=== PATIENT | female | born 1985 | race Caucasian/White ===

== ENCOUNTER → 2016-08-06 | Outpatient (CLI) | payer OTHER ==
[~2016-08-06] MED LIST: NORT25CA2 PO; RIZA10TA2 PO; VERA240C PO; ZONI100C2 PO
[2016-08-06 13:25] LABS: BASO # 0.2 K/mm3 (0.0-0.2); BASO % 1.4 % (0.0-1.0); EOS # 0.1 K/mm3 (0.0-0.50); EOS % 0.5 % (0.0-3.0); LARGE UNSTAINED CELL # 0.1 K/mm3 (0.0-0.4); LARGE UNSTAINED CELL % 0.8 % (0.0-4.0); LYMPH # 1.5 K/mm3 (1.5-4.5); MEAN CORPUSCULAR HEMOGLOBIN 30.8 pg (27.0-33.0); MEAN CORPUSCULAR HGB CONC 33.2 g/dl (32.0-36.5); MEAN CORPUSCULAR VOLUME 92.7 fl (80.0-96.0); MONO # 0.5 K/mm3 (0.0-0.8); MONO % 4.4 % (0.0-5.0); NEUTROPHILS # 9.2 K/mm3 (1.8-7.7); NEUTROPHILS % 80.9 % (36.0-66.0); PLATELET COUNT, AUTOMATED 245 k/mm3 (150-450); RED CELL DISTRIBUTION WIDTH 12.9 % (11.5-14.5); WHITE BLOOD COUNT 11.4 K/mm3 (4.0-10.0)
== END ==
LOC: M SMT 10:32
PROVIDERS: ATTEND Advanced Practice Midwife
DX: Z34.83 Encounter for supervision of other normal pregnancy, third trimester (principal)

== ENCOUNTER 2016-09-10 10:57 | Emergency (ER) | payer OTHER, MEDICAID ==
[~2016-09-10] VITALS: Ht 162.6 cm; Wt 72.6 kg
[2016-09-10 12:05] LABS: BASO % 0.4 % (0.0-1.0); EOS % 0.5 % (0.0-3.0); LARGE UNSTAINED CELL # 0.2 K/mm3 (0.0-0.4); LARGE UNSTAINED CELL % 1.8 % (0.0-4.0); LYMPH # 1.2 K/mm3 (1.5-4.5); LYMPH % 11.8 % (24.0-44.0); MEAN CORPUSCULAR HEMOGLOBIN 31.2 pg (27.0-33.0); MEAN CORPUSCULAR HGB CONC 33.5 g/dl (32.0-36.5); MEAN CORPUSCULAR VOLUME 93.4 fl (80.0-96.0); MONO # 0.4 K/mm3 (0.0-0.8); MONO % 3.7 % (0.0-5.0); NEUTROPHILS # 8.3 K/mm3 (1.8-7.7); NEUTROPHILS % 81.9 % (36.0-66.0); PLATELET COUNT, AUTOMATED 225 k/mm3 (150-450); RED CELL DISTRIBUTION WIDTH 12.3 % (11.5-14.5); WHITE BLOOD COUNT 10.1 K/mm3 (4.0-10.0)
[2016-09-10 12:23] LABS: ANION GAP 7 MEQ/L (8-16); BLOOD UREA NITROGEN 9 MG/DL (7-18); CALCIUM LEVEL 8.6 MG/DL (8.5-10.1); CARBON DIOXIDE LEVEL 27 MEQ/L (21-32); CHLORIDE LEVEL 104 MEQ/L (98-107); CREATININE FOR GFR 0.54 MG/DL (0.55-1.02); GLOMERULAR FILTRATION RATE > 60.0 (>60); GLUCOSE, FASTING 84 MG/DL (70-105); POTASSIUM SERUM 4.2 MEQ/L (3.5-5.1); SODIUM LEVEL 138 MEQ/L (136-145)
[2016-09-10 13:24] LABS: ALBUMIN 2.8 GM/DL (3.2-5.2); ALBUMIN/GLOBULIN RATIO 0.76 (1.00-1.93); ALKALINE PHOSPHATASE 129 U/L (45-117); ALT/SGPT 21 U/L (12-78); AST/SGOT 26 U/L (15-37); BILIRUBIN,DIRECT < 0.1 MG/DL (0.0-0.2); BILIRUBIN,TOTAL 0.2 MG/DL (0.2-1.0); TOTAL PROTEIN 6.5 GM/DL (6.4-8.2)
[2016-09-10 14:53] VITALS: BP 135/63
[2016-09-10] MEDS ORDERED: Holter Monitor (15:26)
--- NOTE | 2016-09-12 12:09 | ECGEPIP ---
Stationary ECG Study 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
== END 2016-09-10 14:56 | disposition home or self-care (01) ==
LOC: EDUNIT# 10:57 → EDBD 10:57 → M ED 12:23
DX: O26.893 Other specified pregnancy related conditions, third trimester (principal); R55 Syncope and collapse

== ENCOUNTER → 2016-09-15 | Outpatient (CLI) | payer OTHER ==
[~2016-09-15] MED LIST changes: +Holter Monitor
[2016-09-15 18:34] LABS: FREE T4 0.91 NG/DL (0.76-1.46)
== END ==
LOC: M SMT 13:47
PROVIDERS: ATTEND Specialist
DX: R55 Syncope and collapse (principal)

== ENCOUNTER → 2016-10-13 | Outpatient (REF) | payer MEDICAID, OTHER ==
[~2016-10-13] MED LIST changes: +COLA100C3 PO; +IBUP600T26 PO; +IBUPOTC PO; +MIRA3350 PO; +OXYC1TAB23 PO; +PRENTAB55 PO; +TYLE500T78 PO
== END ==
LOC: M LAB REF 17:29
PROVIDERS: ATTEND Advanced Practice Midwife
DX: Z34.83 Encounter for supervision of other normal pregnancy, third trimester (principal)

== ENCOUNTER 2016-10-27 06:02 | Inpatient (IN) | payer MEDICAID, OTHER ==
[~2016-10-27] VITALS: Ht 160 cm; Wt 75.0 kg
[2016-10-27] VITALS (7 sets, daily range): BP systolic 95–122; BP diastolic 50–73
[~2016-10-27 06:02] MED LIST changes: -COLA100C3 PO; -IBUP600T26 PO; -IBUPOTC PO; -MIRA3350 PO; -OXYC1TAB23 PO; -TYLE500T78 PO
[2016-10-27] MEDS ORDERED: LR 800 ML IV ONE (06:30)
[2016-10-27] MEDS ORDERED: BICITRA 30ML SOLN UDC PO ONE (06:45)
[2016-10-27] MEDS ORDERED: ceFAZolin SOD 1 GM in D5W MINI-BAG PLUS 50 ML IV ONE (06:45)
[2016-10-27] MEDS ORDERED: LR 1,000 ML IV SCH ×2 (06:45→09:52)
[2016-10-27 07:47] LABS: MEAN CORPUSCULAR HEMOGLOBIN 30.7 pg (27.0-33.0); MEAN CORPUSCULAR VOLUME 93.2 fl (80.0-96.0); RED CELL DISTRIBUTION WIDTH 12.9 % (11.5-14.5); WHITE BLOOD COUNT 8.5 K/mm3 (4.0-10.0)
[2016-10-27] MEDS ORDERED: OXYC1TAB23 PO (08:31)
[2016-10-27] MEDS ORDERED: OXYTOCIN INJ 10 UNITS/ML VIAL (J2590) As Ordered ONE (09:02)
[2016-10-27] MEDS ORDERED: ePHEDrine SULFATE 25 MG/5 ML(5MG/ML) SYRINGE As Ordered ONE (09:02)
[2016-10-27] MEDS ORDERED: KETOROLAC 60 MG/2 ML VIAL (J1885) As Ordered ONE (09:02)
[2016-10-27] MEDS ORDERED: PHENYLephrine HCL 500 MCG/5 ML (100MCG/ML) SYRINGE (J2370) As Ordered ONE (09:02)
[2016-10-27] MEDS ORDERED: MORPHINE PRES-FREE INJ 10 MG/10 ML VIAL (J2274) As Ordered ONE (09:02)
[2016-10-27] MEDS ORDERED: ONDANSETRON 4MG/2ML VIAL (J2405) As Ordered ONE ×2 (09:02→09:28)
[2016-10-27] MEDS ORDERED: NALBUPHINE HCL 10 MG/ML AMP (J2300) IV PRN (09:15)
[2016-10-27] MEDS ORDERED: ONDANSETRON 4MG/2ML VIAL (J2405) IV PRN ×3 (09:15→10:30)
[2016-10-27] MEDS ORDERED: NALOXONE INJ 0.4 MG/1 ML VIAL (J2310) IV PRN ×2 (09:15)
[2016-10-27] MEDS ORDERED: METOCLOPRAMIDE INJ 10MG/2ML VIAL (J2765) IV PRN (09:15)
[2016-10-27] MEDS ORDERED: dexameTHASONE 4 MG/ML 1ML VIAL (J1100) As Ordered ONE (09:28)
[2016-10-27] MEDS ORDERED: DOCUSATE SODIUM 100 MG CAP PO PRN (10:00)
[2016-10-27] MEDS ORDERED: RHOGAM 300 MCG (1500 IU) INJ (J2790) IM SCH (10:00)
[2016-10-27] MEDS ORDERED: MEASLES,MUMPS,RUBELLA VACCINE INJ (MMR-II) (90707) SC SCH (10:00)
[2016-10-27] MEDS ORDERED: PERCOCET 5MG/325MG TAB PO PRN (10:00)
[2016-10-27] MEDS ORDERED: fentaNYL 100 MCG/2 ML INJECTION (J3010) IV PRN (10:30)
[2016-10-27] MEDS ORDERED: OXYTOCIN DRIP 30 UNITS in APPROPRIATE DILUENT 1 EA IV ONE (10:30)
--- NOTE | 2016-10-27 11:44 | RO ---
DATE OF PROCEDURE: 10/27/2016 PREOPERATIVE DIAGNOSIS: 38-1/7 weeks gestation, prior myomectomy surgery. POSTOPERATIVE DIAGNOSIS: 38-1/7 weeks gestation, prior myomectomy surgery. PROCEDURE: Primary low transverse section. SURGEON: Héctor Mendes MD DIE TROUBLE SHOOTER: Rehana Sotomayor CNM ANESTHESIA: Spinal. ESTIMATED BLOOD LOSS: 600 mL. URINE OUTPUT: 100 mL. INTRAVENOUS (IV)FLUIDS: 1500 mL lactated Ringer (LR). FINDINGS: 2814 gram or 6 pound 3 ounce female infant, vertex position, nuchal cord times two. There were adhesions to the posterior uterus. There were sigmoid adhesions to the left lateral uterus, omental adhesions to the anterior abdominal wall. There was a thin area approximately 5-6 cm in diameter of the posterior thin line fundus from prior myomectomy surgery. DESCRIPTION OF PROCEDURE: Patient taken to the operating room where spinal anesthesia was induced. She was prepped and draped in sterile fashion in the supine position. A Austin catheter was in place. A Pfannenstiel skin incision was made with a scalpel, carried through to the underlying fascia. The fascia was nicked and extended. The fascia was dissected off the rectus muscles. The peritoneal cavity was entered. A bladder flap was created. A curvilinear incision was made in the lower uterine segment until clear fluid was noted. This was extended manually. was delivered in the vertex position without difficulty. Nuchal cord times two was reduced manually. cried spontaneously. Cord was doubly clamped and cut. The was handed to awaiting nurses. Placenta was expressed. The uterus was exteriorized and cleared of clots and debris. Uterine incision was closed with #0 Vicryl in a running locked fashion. A second imbricating layer of #0 Vicryl was placed and sigmoid colon adhesions to the left lateral uterus were taken down sharply, omental adhesions at the anterior abdominal wall were taken down sharply. The uterus was placed back in the abdominal cavity. The peritoneum was closed with #2-0 Vicryl in a running fashion. The fascia was closed with #0 Vicryl in a running fashion. The deep layer was irrigated. The deep layer was closed with #3-0 chromic. The skin was closed with #4-0 Monocryl subcuticular sutures. Sponge, instrument and needle counts were correct.
[2016-10-27] MEDS: PRENATAL VITAMIN TAB PO SCH (12:55)
[2016-10-27] MEDS: KETOROLAC 30 MG/ML VIAL (J1885) IV SCH ×2 (15:41→21:42)
[2016-10-28 02:17] VITALS: BP 91/54
[2016-10-28] MEDS ORDERED: diphenhydrAMINE 25 MG CAP PO PRN (03:00)
[2016-10-28] MEDS: KETOROLAC 30 MG/ML VIAL (J1885) IV SCH ×2 (04:05→09:32)
[2016-10-28 05:47] VITALS: BP 95/51
[2016-10-28 06:59] LABS: MEAN CORPUSCULAR HEMOGLOBIN 30.8 pg (27.0-33.0); MEAN CORPUSCULAR HGB CONC 32.4 g/dl (32.0-36.5); MEAN CORPUSCULAR VOLUME 95.2 fl (80.0-96.0); RED CELL DISTRIBUTION WIDTH 12.9 % (11.5-14.5); WHITE BLOOD COUNT 12.8 K/mm3 (4.0-10.0)
[2016-10-28] MEDS: PRENATAL VITAMIN TAB PO SCH (08:01)
[2016-10-28 10:07] VITALS: BP 112/54
[2016-10-28] MEDS: PERCOCET 5MG/325MG TAB PO PRN ×2 (11:25→20:34)
[2016-10-28 14:03] VITALS: BP 116/53
[2016-10-28] MEDS: IBUPROFEN 800 MG TAB PO SCH (17:15)
[2016-10-28 18:06] VITALS: BP 120/57
[2016-10-28 22:12] VITALS: BP 113/67
[2016-10-29] MEDS: PERCOCET 5MG/325MG TAB PO PRN ×2 (00:53→10:37)
[2016-10-29] MEDS: IBUPROFEN 800 MG TAB PO SCH ×2 (02:10→09:36)
[2016-10-29 05:44] VITALS: BP 104/53
[2016-10-29] MEDS: PRENATAL VITAMIN TAB PO SCH (09:35)
[2016-10-29] MEDS ORDERED: IBUP600T26 PO (10:09)
[2016-10-29] MEDS ORDERED: COLA100C3 PO (10:10)
== END 2016-10-29 11:15 | disposition home or self-care (01) | DRG 540 ==
LOC: M LDI 06:02 → M OBS 12:20
PROVIDERS: ADMIT Specialist; ATTEND Specialist
PROC: 10D00Z1 Extraction of Products of Conception, Low, Open Approach (ICD-10-PCS; principal; 2016-10-27 08:30)
DX: O34.29 Maternal care due to uterine scar from other previous surgery (principal); N99.4 Postprocedural pelvic peritoneal adhesions; O69.81X0 Labor and delivery complicated by cord around neck, without compression, not applicable or unspecified; Z3A.38 38 weeks gestation of pregnancy; Z37.0 Single live birth

== ENCOUNTER 2016-11-26 21:41 | Inpatient (IN) | payer OTHER ==
[~2016-11-26] VITALS: Ht 162.6 cm; Wt 70.3 kg
[~2016-11-26 21:41] MED LIST changes: -IBUPOTC PO; -MIRA3350 PO; -TYLE500T78 PO
[2016-11-26] MEDS ORDERED: MIRA3350 PO (21:58)
[2016-11-26] MEDS ORDERED: NS 1,000 ML IV ONE (23:00)
[2016-11-26] MEDS ORDERED: HYDROmorphone HCL 1 MG/ML SYRINGE (J1170) IV ONE (23:00)
[2016-11-26] MEDS ORDERED: diphenhydrAMINE INJ 50MG/ML VIAL (J1200) As Ordered ONE (23:29)
[2016-11-26 23:38] LABS: BASO % 0.6 % (0.0-1.0); EOS # 0.2 K/mm3 (0.0-0.50); LARGE UNSTAINED CELL # 0.1 K/mm3 (0.0-0.4); LYMPH # 2.3 K/mm3 (1.5-4.5); LYMPH % 37.4 % (24.0-44.0); MEAN CORPUSCULAR HEMOGLOBIN 30.1 pg (27.0-33.0); MEAN CORPUSCULAR HGB CONC 32.2 g/dl (32.0-36.5); MEAN CORPUSCULAR VOLUME 93.4 fl (80.0-96.0); MONO # 0.4 K/mm3 (0.0-0.8); MONO % 6.4 % (0.0-5.0); NEUTROPHILS # 2.9 K/mm3 (1.8-7.7); NEUTROPHILS % 50.6 % (36.0-66.0); PLATELET COUNT, AUTOMATED 260 k/mm3 (150-450); RED CELL DISTRIBUTION WIDTH 11.6 % (11.5-14.5); WHITE BLOOD COUNT 5.8 K/mm3 (4.0-10.0)
[2016-11-26 23:56] LABS: ALBUMIN 3.3 GM/DL (3.2-5.2); ALKALINE PHOSPHATASE 101 U/L (45-117); ALT/SGPT 19 U/L (12-78); AMYLASE 58 U/L (25-115); ANION GAP 7 MEQ/L (8-16); AST/SGOT 12 U/L (15-37); BILIRUBIN,DIRECT < 0.1 MG/DL (0.0-0.2); BILIRUBIN,TOTAL 0.2 MG/DL (0.2-1.0); BLOOD UREA NITROGEN 17 MG/DL (7-18); CALCIUM LEVEL 8.8 MG/DL (8.5-10.1); CARBON DIOXIDE LEVEL 27 MEQ/L (21-32); CHLORIDE LEVEL 110 MEQ/L (98-107); CREATININE FOR GFR 0.81 MG/DL (0.55-1.02); GLOMERULAR FILTRATION RATE > 60.0 (>60); GLUCOSE, FASTING 94 MG/DL (70-105); POTASSIUM SERUM 3.8 MEQ/L (3.5-5.1); SODIUM LEVEL 144 MEQ/L (136-145); TOTAL PROTEIN 6.6 GM/DL (6.4-8.2)
[2016-11-27] MEDS ORDERED: ISOVUE-370 76% 100ML VIAL (Q9967) As Ordered ONE (00:24)
[2016-11-27] MEDS ORDERED: diphenhydrAMINE INJ 50MG/ML VIAL (J1200) IV STA (00:39)
[2016-11-27] MEDS ORDERED: MORPHINE 4 MG/ML 1ML SYRINGE IV ONE (00:45)
--- NOTE | 2016-11-27 00:50 | REPUSA ---
CT of the abdomen and pelvis with contrast Clinical statement: Pain. Technique: Multiple axial CT images were obtained from the base of the lungs through the floor of the pelvis utilizing 5 mm axial slices after administration of nonionic intravenous contrast. Coronal an d sagittal reconstructions were also obtained. Comparison: None. Findings: Chest: The visualized lung bases are clear. Abdomen: The liver, spleen, pancreas, kidneys, gallbladder, and adrenal glands are unremarkable. The aorta is within normal limits. There is no evidence of abdominal lymphadenopathy or ascites. Pelvis: Moderate amount of stool fills the colon.The bowel is otherwise unremarkable, with no obstruc tive or inflammatory changes. The urinary bladder is within normal limits. The other pelvic structure s appear grossly intact. There is no evidence of pelvic lymphadenopathy. There is a small amount of f ree fluid in the cul-de-sac. Bones: There are no suspicious osseous abnormalities seen. Impression: 1. Mild constipation. No obstructive or inflammatory bowel changes. 2. Small amount of free fluid in the cul-de-sac.
[2016-11-27] MEDS ORDERED: MORPHINE 10 MG/ML 1ML VIAL IV ONE (01:15)
[2016-11-27] MEDS ORDERED: OXYC1TAB23 PO (01:57)
[2016-11-27] MEDS ORDERED: IBUPOTC PO (01:57)
--- NOTE | 2016-11-27 02:37 | HPE ---
DATE OF ADMISSION: 11/27/2016 31-year-old, (G) 3, para (P) 2-0-1-2 female status post primary section on 10/27/2016, presents with 3 days of sharp constant right lower quadrant pain. The pain started several hours after walking vigorously up two flights of stairs. The pain is getting progressively worse. She rates the pain as a 10/10 in severity. She presented to the emergency room today as the pain could not be controlled with oral narcotics. She denies nausea, vomiting, or diarrhea. She has occasional bouts of constipation. She denies fevers or chills. MEDICAL HISTORY: Noncontributory. SURGICAL HISTORY: 1. (C) section times one on 10/27/2016. 2. myomectomy via pfanennsteil incision. SOCIAL HISTORY: The patient is . She denies cigarettes, alcohol or drug use. ALLERGIES: CECLOR. FAMILY HISTORY: Noncontributory. PHYSICAL EXAMINATION: VITAL SIGNS: Blood pressure 118/67, pulse 88, temperature 98.1, respiratory rate 18. She appears uncomfortable with the tenderness in the right lower quadrant starting at the right margin of the incision extending upward in an arc towards the anterior superior iliac spine. There is a firm cord palpable there. There is no fluctuance. There is no erythema. The remainder of the abdominal exam is totally benign. Uterus in nontender. EXTREMITIES: Nontender. LABORATORIES: White blood count 5.8, hemoglobin 11.7. Basic chemistry profile normal. CT scan essentially normal postoperative CT scan of the abdomen and pelvis. ASSESSMENT: 31-year-old (G) 3 para(P) 2-0-1-2 female one month status post section presents with worsening right lower quadrant pain. The etiology of the pain is unclear. The patient will be admitted for pain control. Consider opening the right side of the incision to see if there is an abscess or fluid collection, although it seems unlikely based on clinical presentation. Will continue to observe pain for any remission. Possible nerve entrapment pain as part of differential diagnosis. Patient will be on stool softeners to maintain bowel movements. [facility]
[2016-11-27] MEDS ORDERED: LR 1,000 ML IV SCH (02:45)
[2016-11-27] MEDS ORDERED: PERCOCET 5MG/325MG TAB PO PRN (02:45)
[2016-11-27] MEDS ORDERED: IBUPROFEN 800 MG TAB PO PRN (03:00)
[2016-11-27] MEDS ORDERED: ONDANSETRON 4MG/2ML VIAL (J2405) IV PRN ×2 (03:00→23:30)
[2016-11-27] MEDS: PERCOCET 5MG/325MG TAB PO PRN ×5 (03:05→20:21)
[2016-11-27 04:00] VITALS: BP 112/67
[2016-11-27 07:07] LABS: MEAN CORPUSCULAR HGB CONC 32.1 g/dl (32.0-36.5); MEAN CORPUSCULAR VOLUME 96.4 fl (80.0-96.0); RED CELL DISTRIBUTION WIDTH 11.6 % (11.5-14.5); WHITE BLOOD COUNT 4.5 K/mm3 (4.0-10.0)
[2016-11-27 07:20] LABS: ANION GAP 4 MEQ/L (8-16); BLOOD UREA NITROGEN 14 MG/DL (7-18); CALCIUM LEVEL 7.7 MG/DL (8.5-10.1); CARBON DIOXIDE LEVEL 28 MEQ/L (21-32); CHLORIDE LEVEL 114 MEQ/L (98-107); CREATININE FOR GFR 0.83 MG/DL (0.55-1.02); GLOMERULAR FILTRATION RATE > 60.0 (>60); GLUCOSE, FASTING 81 MG/DL (70-105); POTASSIUM SERUM 4.1 MEQ/L (3.5-5.1); SODIUM LEVEL 146 MEQ/L (136-145)
[2016-11-27 08:00] VITALS: BP 96/55
[2016-11-27] MEDS ORDERED: LIDOCAINE 1% SDV 5 ML VIAL SC ONE (08:15)
[2016-11-27] MEDS: MIRALAX *UNIT DOSE* 17GM PACKET PO SCH (09:29)
[2016-11-27] MEDS: DOCUSATE SODIUM 100 MG CAP PO SCH ×2 (09:29→20:21)
[2016-11-27] MEDS: MORPHINE 4 MG/ML 1ML SYRINGE IV PRN ×3 (09:37→21:19)
[2016-11-27] MEDS: IBUPROFEN 800 MG TAB PO SCH ×2 (13:11→22:05)
[2016-11-27 16:00] VITALS: BP 96/51
[2016-11-27 20:00] VITALS: BP 107/55
[2016-11-27] MEDS ORDERED: KETOROLAC 30 MG/ML VIAL (J1885) IV PRN (23:15)
[2016-11-27] MEDS: NS 1,000 ML IV SCH (23:20)
[2016-11-27] MEDS ORDERED: MORPHINE 1MG/ML IN 0.9% NACL 100ML IV BAG IV PRN (23:30)
[2016-11-27] MEDS ORDERED: NALOXONE INJ 0.4 MG/1 ML VIAL (J2310) IV PRN (23:30)
[2016-11-27] MEDS ORDERED: NALBUPHINE HCL 10 MG/ML AMP (J2300) IV PRN (23:30)
[2016-11-27] MEDS ORDERED: EPIDURAL/PCA KEYS XX PRN (23:30)
[2016-11-28] VITALS (10 sets, daily range): BP systolic 92–121; BP diastolic 46–73
[2016-11-28] MEDS: KETOROLAC 30 MG/ML VIAL (J1885) IV PRN ×3 (05:42→19:00)
[2016-11-28 06:44] LABS: MEAN CORPUSCULAR HEMOGLOBIN 30.8 pg (27.0-33.0); MEAN CORPUSCULAR HGB CONC 32.6 g/dl (32.0-36.5); MEAN CORPUSCULAR VOLUME 94.5 fl (80.0-96.0); RED CELL DISTRIBUTION WIDTH 11.7 % (11.5-14.5); WHITE BLOOD COUNT 6.6 K/mm3 (4.0-10.0)
[2016-11-28] MEDS: MIRALAX *UNIT DOSE* 17GM PACKET PO SCH (08:37)
[2016-11-28] MEDS: DOCUSATE SODIUM 100 MG CAP PO SCH ×2 (08:37→21:17)
[2016-11-28] MEDS: diphenhydrAMINE INJ 50MG/ML VIAL (J1200) IV PRN ×2 (09:09→16:58)
[2016-11-28] MEDS: GABAPENTIN 300 MG CAP PO SCH ×2 (18:49→21:17)
[2016-11-28] MEDS: PERCOCET 5MG/325MG TAB PO PRN (22:33)
[2016-11-28] MEDS: NS 1,000 ML IV SCH (23:19)
[2016-11-29] VITALS: BP 107/55
[2016-11-29] MEDS: KETOROLAC 30 MG/ML VIAL (J1885) IV PRN ×4 (01:01→19:12)
[2016-11-29] MEDS: PERCOCET 5MG/325MG TAB PO PRN ×5 (03:34→21:40)
[2016-11-29 04:00] VITALS: BP 117/60
[2016-11-29 08:00] VITALS: BP 108/53
[2016-11-29] MEDS: DOCUSATE SODIUM 100 MG CAP PO SCH ×2 (08:50→21:00)
[2016-11-29] MEDS: GABAPENTIN 300 MG CAP PO SCH ×3 (08:50→21:00)
[2016-11-29] MEDS: MIRALAX *UNIT DOSE* 17GM PACKET PO SCH (08:50)
[2016-11-29] MEDS ORDERED: BUPIVACAINE HCL 0.25% 30 ML VIAL SC ONE (10:00)
[2016-11-29] MEDS: PRENATAL VITAMIN TAB PO SCH (15:45)
[2016-11-29 16:00] VITALS: BP 145/90
[2016-11-29 20:00] VITALS: BP 112/68
[2016-11-29] MEDS: NS 1,000 ML IV SCH (23:19)
[2016-11-30] VITALS: BP 109/57
[2016-11-30] MEDS: KETOROLAC 30 MG/ML VIAL (J1885) IV PRN ×2 (01:36→08:21)
[2016-11-30] MEDS: PERCOCET 5MG/325MG TAB PO PRN (06:04)
[2016-11-30 08:00] VITALS: BP 107/63
[2016-11-30] MEDS: MIRALAX *UNIT DOSE* 17GM PACKET PO SCH (08:20)
[2016-11-30] MEDS: PRENATAL VITAMIN TAB PO SCH (08:21)
[2016-11-30] MEDS: GABAPENTIN 300 MG CAP PO SCH ×3 (08:21→21:59)
[2016-11-30] MEDS: DOCUSATE SODIUM 100 MG CAP PO SCH ×2 (08:21→21:59)
[2016-11-30] MEDS ORDERED: LIDOCAINE 5% (LIDODERM) PATCH TD ONE (10:00)
[2016-11-30] MEDS ORDERED: IBUPROFEN 800 MG TAB PO SCH (14:00)
[2016-11-30 16:00] VITALS: BP 132/63
--- NOTE | 2016-11-30 17:01 | CR.PDOC ---
[facility] Pain Clinic Consultation General Date of Consultation: 11/30/16 Consultation Report For: MYESHA SCHAFFER MD Chief Complaint The patient is a 31-year-old female admitted with a reason for visit of Pelvic Pain. History of Present Illness Paulette Calderon is a 31-year-old female who we are asked to see for assistance in management of right groin area pain, status post section. Paulette reports that her recent with of her daughter on 10/27/2016 by section was without complications. She states that she was able to be discharged from the hospital within 2 days of her confinement and that she had no problems with healing of her incision. She reports that she went for a job interview around November 09 and at that time climbed a flight of stairs. She initially had a twinge of discomfort, which got progressively worse in the right groin. She did follow up with her entry level automotive technician, Dr. Myesha Schaffer, but unfortunately continued to have significant pain in the right groin. Notes that the pain starts just at the edge of her surgical incision right side and radiates up towards the right hip but also has significant pain with any twisting or reaching with the right side of her body. Notes that stepping down is exquisitely painful. Denies any numbness or tingling into the legs. Denies any saddle numbness. Denies any difficulty with bladder but he is noted that she is constipated. Bowels have not moved in 1 week. Rates pain level today as a 5-7/10 while lying in bed and a 9-10 over 10 if attempting to stand and walk. Dr. Schaffer did do an aspiration of the suture line right side with no fluid apparently obtained. There has been no drainage and no redness from the incision. She has had some imaging studies which will be outlined below. Medications which have been trialed have been morphine, oxycodone, Toradol and gabapentin. She is due to be started on some ibuprofen. He notes that only the combination of Toradol and morphine provided her with much relief in the Toradol was the best part of it Home Medications Scheduled Multivitamins/ ( 19) 1 Tab Tab, 1 TAB PO DAILY, (Reported) Scheduled PRN Ibuprofen (Ibuprofen) 200 Mg Tab, 400 MG PO Q6H PRN for PAIN, (Reported) Oxycodone/Acetaminophen (Oxycodone/Acetaminophen 5-325 mg) 1 Tab Tab, 1 TAB PO Q6H PRN for PAIN, (Reported) Polyethylene Glycol (Miralax) 1 Pow Pow, 17 GM PO DAILY PRN for CONSTIPATION, ( Reported) dilute in 8 ounces of water or juice Allergies Coded Allergies: Hydromorphone (Unverified Adverse Reaction, Unknown, 11/27/16) Past Medical History Medical History General good health Surgical History Laparoscopic myotome Karen to [place] 2014 Family History Family History Noncontributory Social History Social History Denies tobacco, alcohol, or illicit substance abuse. Lives with her and her children. 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 Review of Systems Subjective HEENT: Denies: head aches, vision problems, hearing problems Skin: Reports: other (abdominal surgical incision healing without difficulty), Denies: lesions, rash, breakdown Pulmonary: Reports: other (had difficulty with shortness of breath during , which caused her to need to lie down), Denies: cough, dyspnea Cardiovascular: Denies: chest pain, edema, palpitations Gastrointestinal: Reports: constipation (is currently taking Colace and MiraLAX. No bowel movement in one week), other (did have some nausea during ) Genitourinary: Denies: dysuria, hematuria, loss of bladder control Hematologic: Denies: easy bleeding, easy bruising, blood dyscrasias Endocrine: Denies: Diabetes mellitus Neurological: Reports: other (episodes of dizziness during . This has resolved. Denies seizures, headaches, tremors) Psych: Reports: mood normal, Denies: thoughts of self harm, thoughts of harming other Physical Examination Physical Examination Vital Signs/I&O Vital Signs Date Time Temp Pulse Resp B/P (MAP) Pulse Ox O2 Delivery O2 Flow Rate FiO2 11/30/16 08:00 97.8 83 18 107/63 (78) 96 Room Air I&O- Last 24 Hours up to 6 AM 11/30/16 05:59 Intake Total 1200 ml Output Total 1650 ml Balance -450 ml Visual Analog Score (VAS): 5 (while at rest, 9-10 over 10 with attempting to walk) ENT EXAM: Positive: normocephalic Neck Exam: Positive: Full range of motion Chest Exam: Positive: Clear to auscultation, Decreased resp. excursion ( particularly noting pain, right side. Abdomen) Heart Exam: Positive: Regular rate and rhythm, Normal S1, S2, Negative: Murmurs, Rubs Abdominal Exam: Positive: Other (bowel sounds active. Abdomen is soft, slightly distended. Well-healed surgical incision noted over the symphysis pubis. No erythema no drainage along the incision. Trigger point versus scar neuroma palpated and a half to 2 cm proximal and lateral to the abdominal incision right side, exquisitely tender to touch. Mild tenderness over the right ilioinguinal level region. No tenderness over the medial, anterior or lateral thigh) Skin Exam: Positive: Warm, Dry, Negative: Rashes, Lesions Neuro Exam: Positive: Muscle Strength U/L Ext., Normal Tone, Reflexes 2+ Psych Exam: Positive: Mental status NL, Mood NL Laboratory Data Microbiology Microbiology 11/26/16 Urine Culture - Final, Complete Diagnostic and Imaging Studies Ultrasound of the pelvis completed on 11/26/2016. Notes diffusely heterogeneous uterus. The endometrium is isoechotic at with the myometrium and margins of the endometrium cannot be defined. However, no definite endometrial mass or fluid is identified. There are follicles in the right ovary. There is no dominant ovarian mass or cyst. There is vascular flow and both ovaries. There is no free fluid in the pelvis. Because of the difficulty in defining the margins of the endometrium him as per radiologist, Dr. Leonard Joseph, MRI may be considered depending on clinical findings. CT of the abdomen and pelvis with IV dye was completed on 11/27/2016. This did demonstrate mild constipation. No obstructive or inflammatory bowel changes, small amount of free fluid is noted in the cul-de-sac. Assessment 1. Right inguinal/right lower quadrant abdominal pain. 2. Trigger points versus scar neuroma, right lower quadrant. Recommendation and Plan I did review the case him with Dr. Reyes and we will look to bring Paulette to the pain clinic tomorrow for option of trigger points versus scar neuroma injection. Risks and benefits of this procedure were reviewed with Delmy and her and they will be reviewed again tomorrow at the Center. Delmy reports that she has not yet received much benefit from any of the medications she has been on. Did encourage her to continue with the gabapentin as ordered. He also has Lidoderm patch in place and I not certain if this is being discontinued, but it certainly may be helpful for her. She is also been applying ice pack to the right lower abdomen, which she finds helpful on for the cold as well as for the pressure that it places at the area. I have encouraged her to be out of bed and work on getting her bowels to evacuate. Thank you Dr. Schaffer. for allowing us to participate in the care of your patient, Delmy Calderon. We will look to be speaking with you following Delmy's visit with to the pain Center tomorrow. Should you have any questions we will be glad to discuss this with you at any time please contact us here at the pain center at [phone]. Azul Romo November 30, 2016 17:01
[2016-11-30] MEDS: ACETAMINOPHEN 500 MG TAB PO PRN (20:17)
[2016-11-30] MEDS: **NOTE PATIENT COMMENT** MISC XX SCH (21:00)
[2016-12-01] VITALS: BP 131/68
[2016-12-01] MEDS: IBUPROFEN 600 MG TAB PO SCH ×4 (00:57→18:29)
[2016-12-01] MEDS: ACETAMINOPHEN 500 MG TAB PO PRN ×2 (03:22→09:26)
[2016-12-01 08:00] VITALS: BP 125/65
[2016-12-01] MEDS: MIRALAX *UNIT DOSE* 17GM PACKET PO SCH (08:57)
[2016-12-01] MEDS: DOCUSATE SODIUM 100 MG CAP PO SCH ×2 (08:57→21:59)
[2016-12-01] MEDS: GABAPENTIN 300 MG CAP PO SCH ×3 (08:57→21:58)
[2016-12-01] MEDS: PRENATAL VITAMIN TAB PO SCH (08:57)
[2016-12-01] MEDS ORDERED: oxyCODONE 5MG TAB As Ordered ONE (16:35)
[2016-12-01] MEDS ORDERED: diazePAM 5 MG TAB As Ordered ONE (16:35)
[2016-12-01] MEDS ORDERED: TRIAMCINOLONE ACETONIDE SUSP 40 MG/ML VIAL (J3301) As Ordered ONE (16:48)
[2016-12-01] MEDS ORDERED: BUPIVACAINE HCL 0.25% 30 ML VIAL As Ordered ONE (16:48)
[2016-12-01] MEDS ORDERED: ISOVUE-M 300 61% 15ML VIAL (Q9967) As Ordered ONE (16:48)
[2016-12-01] MEDS ORDERED: LIDOCAINE 1% SDV INJ 30 ML VIAL As Ordered ONE (16:48)
[2016-12-01 18:00] VITALS: BP 116/84
[2016-12-01 20:00] VITALS: BP 120/75
[2016-12-01] MEDS: **NOTE PATIENT COMMENT** MISC XX SCH (21:00)
[2016-12-02] VITALS: BP 110/58
[2016-12-02] MEDS: IBUPROFEN 600 MG TAB PO SCH ×2 (01:02→06:15)
[2016-12-02 08:00] VITALS: BP 118/66
[2016-12-02] MEDS ORDERED: TYLE500T78 PO (08:48)
--- NOTE | 2016-12-02 15:49 | DSES ---
DATE OF ADMISSION: 11/27/2016 DATE OF DISCHARGE: 12/02/2016 HISTORY: 31-year-old 3, para 2-0-1-2 female status post primary section on 10/27/2016, presents with three days of sharp, constant right lower quadrant pain that has become increasingly severe and she rates as a 10 out of 10 in severity. She presented to the emergency room because of the pain could not be controlled on oral narcotics. Her medical history is significant for section approximately one month prior to admission. She also had a prior laparotomy with transverse incision for a myomectomy in the past. HOSPITALIZATION COURSE: The patient was admitted on 11/27/2016. She was given both narcotics, as well as nonsteroidal antiinflammatory drugs for pain. Pain control was not adequate. On 11/29/2016, the patient received local anesthesia , along with an attempt at I+D of the wound. No fluid collection was found She had no fever throughout admission. She was put on CLINICAL TRIAL SPECIALIST morphine at one point, however, it was totally ineffective pain relief. The CLINICAL TRIAL SPECIALIST was then stopped. On 11/29/2016, the patient had an attempt at a trigger point injection of the right lower quadrant incision with Marcaine. This was done by Dr. Mendes. She did get moderate relief of pain; however, the pain did recur several hours later. On 11/30/2016, she had a consultation from interventional pain physician. On 12/01/2016, she saw Dr. Reyes of the pain clinic where she had a second attempt at a trigger point injection done. This was successful and caused complete relief of her pain. We observed her for an additional evening to see if the pain would return and it did not. On 12/02/2016, she was deemed stable for discharge. ADMISSION DIAGNOSES: 1. Nerve entrapment. 2. Pain syndrome. DISCHARGE DIAGNOSES: 1. Nerve entrapment. 2. Pain syndrome. PROCEDURE: Trigger point injection to the ilioinguinal nerve. DISPOSITION: The patient will followup with Dr. Mendes in 2 weeks. She is to take ibuprofen or Tylenol as needed for discomfort. [facility]
== END 2016-12-02 09:50 | disposition home or self-care (01) | DRG 561 ==
LOC: M ED 22:16 → M ED INP 11-27 01:17 → M PED 11-27 03:24
PROVIDERS: ADMIT Specialist; ATTEND Specialist
PROC: 3E0T3BZ Introduction of Anesthetic Agent into Peripheral Nerves and Plexi, Percutaneous Approach (ICD-10-PCS; principal; 2016-12-01)
DX: O99.355 Diseases of the nervous system complicating the puerperium (principal); G89.18 Other acute postprocedural pain; G57.81 Other specified mononeuropathies of right lower limb

== ENCOUNTER → 2016-11-26 | Outpatient (CLI) | payer MEDICAID, OTHER ==
[~2016-11-26] MED LIST changes: +COLA100C3 PO; +IBUP600T26 PO; +IBUPOTC PO; +MIRA3350 PO; +OXYC1TAB23 PO; +TYLE500T78 PO
--- NOTE | 2016-11-26 17:50 | REP ---
Pelvic ultrasound, stat request: The patient complains of right lower quadrant pain as approximate 4 weeks since section the patient has had a right lower quadrant pain for approximately 3 days. The studies performed with transabdominal, endovaginal and Doppler ultrasound assessment. The uterus is anteverted and normal size measuring 8.8 x 6.1 x 6.7 meters. The myometrium is diffusely heterogeneous. No fibroids are identified. The margins of the endometrium cannot be identified and the endometrium appears to be isoechoic with the heterogeneous myometrium. No definite endometrial mass is identified. I suspect there are a few tiny endometrial calcifications. The ovaries are normal size. Right ovary measures 2.6 x 2.6 x 2.3 cm. Left ovary measures 5.0 x 3.7 x 2.6 cm. There are no dominant ovarian masses or cysts. There are small follicles in the right ovary. There is no free fluid in the pelvis. There is vascular flow in both ovaries with the Doppler resistive index of the intraparenchymal arteries on the right measuring 0.61 on the left 0.55. No evidence of ovarian torsion. There is peristalsing bowel in the area where the patient feels pain. Impression: Diffusely heterogeneous uterus. The endometrium is isoechoic with the myometrium and the margins of the endometrium cannot be defined. However, no definite endometrial mass or fluid is identified. There are follicles in the right ovary. There is no dominant ovarian mass or cyst. There is vascular flow in both ovaries. There is no free fluid in the pelvis. Because of the difficulty in defining the margins of the endometrium. A followup MRI might be considered depending on clinical findings. Signed by Leonard Carr MD 11/26/2016 05:41 P
== END ==
LOC: M RAD 16:12
PROVIDERS: ATTEND Specialist
DX: Z34.82 Encounter for supervision of other normal pregnancy, second trimester (principal)

== ENCOUNTER → 2016-12-03 | Outpatient (CLI) | payer OTHER ==
[~2016-12-03] MED LIST changes: +IBUPOTC PO; +MIRA3350 PO; +TYLE500T78 PO
--- NOTE | 2016-12-07 23:04 | ECWPNPC ---
PATIENT NAME: LYLE SWANSON : 1985 GENDER: FEMALE VISIT DATE: 12/03/2016 DISCHARGE DATE: 12/03/16 1149 VISIT LOCKED DATE TIME: PHYSICIAN: ANDRIA HOWELL RESOURCE: ANDRIA HOWELL REASON FOR APPOINTMENT 1. POST ILIOINGUINAL HISTORY OF PRESENT ILLNESS HISTORY OF PRESENT ILLNESS: PAIN THE PATIENT DESCRIBES THE PAIN... FALL RISK SCREENING: SCREENING :NO FALLS IN THE PAST YEAR TODAY'S VISIT: NOTES: P RATES PAIN TODAY 5/10. DESCRIBES PAIN INTERMITTANT, ACHING, BURNING TENDER AND SORE. PATIENT SEEN FOR HOSPITAL INPATIENT EVAL AND BROUGHT TO CLINIC WHERE A R ILIOINGUINAL NERVE BLOCK WAS DONE. THIS DID DECREASE THE PAIN IN THE RIGHT LOWER ABDOMEN. .NO PAIN IN GROIN BUT DOES HAVE SOME SHARP SHOOTING.IN THE GROIN PAIN NOW MORE ALONG RIGHT SIDE OF SCAR. IS ABLE TO WALK. IS ABLE TO PUT FOOT DOWN AND MOVE RIGHT SIDE. NO ISSUES WITH BOWELS OR BLADDER. HAS CHECKED WITH PEDIATRITION AND IS OK TO NURSE. . CURRENT MEDICATIONS TAKING 19 - TABLET ORALLY , NOTES: 12/01 9AM TAKING ACETAMINOPHEN 500 MG TABLET 2 TABLETS NEEDED ORALLY EVERY 6 HRS, NOTES: 12/01 9AM DISCONTINUED DOCUSATE SODIUM 100 MG CAPSULE 1 CAPSULE NEEDED ORALLY ONCE A DAY, NOTES: 12/01 9AM DISCONTINUED POLYETHYLENE GLYCOL - POWDER , NOTES: 12/01 9AM DISCONTINUED GABAPENTIN 300 MG CAPSULE 1 CAPSULE ORALLY THREE TIMES A DAY, NOTES: 12/01 9AM DISCONTINUED IBUPROFEN 1 TAB ORAL , NOTES: 11/30 4PM DISCONTINUED IBUPROFEN 600MG PRN PO , NOTES: 12/01 6AM DISCONTINUED ONDANSETRON 1 TAB ORAL , NOTES: 11/30 2AM DISCONTINUED DIPHENHYDRAMINE 1 TAB ORAL , NOTES: 11/28 4PM DISCONTINUED NALBUPHINE HCL 10 MG/ML SOLUTION 1 ML NEEDED INJECTION EVERY 6 HRS DISCONTINUED NALOXONE HCL 0.4 MG/ML SOLUTION INJECTION DISCONTINUED IBUPROFEN 200 MG TABLET 1 TABLET WITH FOOD OR MILK NEEDED ORALLY EVERY 6 HRS MEDICATION LIST REVIEWED AND RECONCILED WITH THE PATIENT PAST MEDICAL HISTORY NO MEDICAL HISTORY. ALLERGIES DILAUDID: ANGIOEDEMA: ALLERGY REVIEW OF SYSTEMS CONSTITUTIONAL: ANY CHANGE IN YOUR MEDICAL CONDITION? NO . CHILLS NO . FEVER NO . INFECTION: DO YOU HAVE NEW INFECTIONS? NO . DO YOU HAVE HISTORY OF MRSA? NO . MUSCULOSKELETAL: ANY NEW PATTERNS OF PAIN OR NUMBNESS? YES . GASTROENTEROLOGY: ANY NEW CHANGE IN BOWEL CONTROL? NO . GENITOURINARY: ANY NEW CHANGE IN BLADDER CONTROL? NO . IS THERE A CHANCE YOU COULD BE ? NO . HEMATOLOGY/LYMPH: DO YOU TAKE ANY BLOOD THINNERS? (FOR EXAMPLE- COUMADIN, PLAVIX, AGGRENOX, PLATEL, PRADAXA, OR XARELTO) NO . WHEN WAS YOUR LAST DOSE? DATE: TIME: . NEUROLOGY: HAVE YOU FALLEN IN THE PAST 6 MONTHS? NO . ANY NEW EXTREMITY NUMBNESS OR WEAKNESS? NO . CARDIOLOGY: DO YOU HAVE A PACEMAKER OR DEFIBRILLATOR? NO . RESPIRATORY: HAVE YOU BEEN SICK IN THE PAST WEEK? NO . FEVER NO . FLU LIKE SYMPTOMS? NO . COUGH NO . INTEGUMENTARY: DO YOU HAVE ANY RASHES OR OPEN SORES? NO . ALLERGIC/IMMUNO: ARE YOU ALLERGIC TO SHELLFISH OR IV DYE? NO . ANY NEW ALLERGIES? NO . PSYCHIATRIC: DO YOU HAVE THOUGHTS OF HURTING YOURSELF OR SOMEONE ELSE? NO . ARE YOU ABUSED, NEGLECTED, OR IN AN UNSAFE ENVIRONMENT? NO . ENDOCRINOLOGY: ARE YOU DIABETIC? NO . OTHER: DO YOU NEED ANY PRESCRIPTIONS? NO . IF YES, PLEASE LIST: ____ . ANY NEW PROBLEMS WITH YOUR MEDICATIONS? NO . WHEN DID YOU LAST EAT? ____ . WHEN DID YOU LAST DRINK? ____ . WHAT DID YOU LAST DRINK? ____ . NAME OF PERSON DRIVING YOU HOME? ____ . DO YOU HAVE ANY OTHER QUESTIONS OR CONCERNS NO . REVIEWED BY: PROVIDER: ANDRIA RYAN . VITAL SIGNS WT 150.0 LBS, HT 64", BMI 25.74 INDEX, BP 136/73 MM HG, HR 82 /MIN, RR 16 /MIN, TEMP 97.9 F, OXYGEN SAT % 98%, NA INITIALS TL 1027, REVIEWED BY: VD. EXAMINATION GENERAL EXAMINATION: GENERAL APPEARANCE:BROUGHT INTO CLINIC BY HER IN WHEELCHAIR. . PSYCHALERT , ORIENTED X 3 , APPROPRIATE MOOD AND AFFECT . SMILING AND TALKIATIVE. LUNGS:CLEAR TO AUSCULTATION BILATERALLY. HEART:HEART RATE REGULAR. ABDOMEN:SOFT, NON-TENDER, NO ORGANOMEGALY, BOWEL SOUNDS ARE NORMAL. MILD TENDERNESS WITH PALPATION OVER RIGHT INCISION OVER SYMPHYSIS PUBIS. NO EDEMA, NO REDNESS, NO EXUDATE, NO SWELLLING. NO PALPABLE NEUROMA FELT. FULL ROM AT HIPS BILATERALLY. ABLE TO RISE TO STANDING POSITION. POSTURE UPRIGHT. GAIT SLOW, NON ANTALGIC. 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 USE GABAPENTIN IF SHARP PAIN IN GROIN RETURNS. USE LOTION WITH NO ALCOHOL TO INCISION. USE ICE AND GENTLE MASSAGE TO PAIN AREA. PROCEDURE CODES FA211 ESTABILISHED PATIENT [facility] CHARGE DISPOSITION & COMMUNICATION FOLLOW UP 2 WEEKS (REASON: RIGHT ILIOINGUNAL NEURALGIA/ SCAR NEUROMA) ELECTRONICALLY SIGNED BY AYANA HAYES ON 12/07/2016 AT 02:04 PM EDT DISCLAIMER : THIS IS A VISIT SUMMARY EXTRACTED FROM THE [employer] CHART. IT IS NOT A COPY OF THE [employer] PROGRESS NOTE. HEIDE
== END ==
LOC: M PAIN 10:00
PROVIDERS: ATTEND Nurse Practitioner Family
DX: D36.15 Benign neoplasm of peripheral nerves and autonomic nervous system of abdomen (principal); G57.91 Unspecified mononeuropathy of right lower limb; Z79.899 Other long term (current) drug therapy; Z88.5 Allergy status to narcotic agent

== ENCOUNTER → 2016-12-30 | Outpatient (CLI) | payer OTHER ==
[~2016-12-30] MED LIST changes: -COLA100C3 PO; +COLA100C5 PO; +IBUP-1022 PO; -IBUP600T26 PO
--- NOTE | 2017-01-19 00:38 | ECWPNPC ---
PATIENT NAME: LYLE SWANSON : 1985 GENDER: FEMALE VISIT DATE: 12/30/2016 DISCHARGE DATE: 12/30/16 1212 VISIT LOCKED DATE TIME: PHYSICIAN: ANDRIA HOWELL RESOURCE: ANDRIA HOWELL HISTORY OF PRESENT ILLNESS TODAY'S VISIT: NOTES: RATES PAIN TODAY 0/10. REPORTS SHE HAS HAD SOME RESIDUAL SORENESS AT THE RIGHT GROIN INCISION SITE, BUT NO RETURN OF PAIN SINCE INJECTION. HAS NEEDED NO MEDICATIONS FOR THIS, IS SLEEPING WELL. . HISTORY OF PRESENT ILLNESS: PAIN THE PATIENT DESCRIBES THE PAIN... FALL RISK SCREENING: SCREENING :NO FALLS IN THE PAST YEAR CURRENT MEDICATIONS TAKING 19 - TABLET 1 TAB ORALLY DAILY TAKING ACETAMINOPHEN 500 MG TABLET 2 TABLETS NEEDED ORALLY EVERY 6 HRS TAKING GABAPENTIN 300 MG CAPSULE 1 CAPSULE ORALLY THREE TIMES A DAY, NOTES: HAVEN'T TAKEN YET TAKING NORETHINDRONE (CONTRACEPTIVE) 1 TAB ORALLY DAILY MEDICATION LIST REVIEWED AND RECONCILED WITH THE PATIENT ALLERGIES DILAUDID: ANGIOEDEMA: ALLERGY SOCIAL HISTORY GENERAL: TOBACCO USE ARE YOU A:: NEVER SMOKER . ALCOHOL SCREENING POINTS: 1, INTERPRETATION: NEGATIVE. RECREATIONAL DRUG USE DENIES. CAFFEINE 1-2/DAY. 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 DIET: REGULAR. EXERCISE: DAILY. MORMONISM [id number] NONE PAIN CLINIC PFS, CLERGY, PUBLIC HEALTH REFERRALS PFS REFERRAL NEEDED?NO CLERGY REFERRAL NEEDED?NO PUBLIC HEALTH REFERRAL NEEDED?NO HAS THE PATIENT BEEN EDUCATED REGARDING HIS/HER PLAN OF CARE?YES HAS THE PATIENT BEEN EDUCATED REGARDING PAIN, THE RISK FOR PAIN, THE IMPORTANCE OF EFFECTIVE PAIN MANAGEMENT, AND THE PAIN ASSESSMENT PROCESS?YES DOMESTIC VIOLENCE NONE. DENIES SMOKING OR STREET DRUGS. DRINKS 1-2 GLASSES OF WINE PER MONTH. REVIEW OF SYSTEMS REVIEWED BY: PROVIDER: ANDRIA HOWELL ASSISTANT SALES DIRECTOR . CONSTITUTIONAL: ANY CHANGE IN YOUR MEDICAL CONDITION? NO . CHILLS NO . FEVER NO . INFECTION: DO YOU HAVE NEW INFECTIONS? NO . DO YOU HAVE HISTORY OF MRSA? NO . MUSCULOSKELETAL: ANY NEW PATTERNS OF PAIN OR NUMBNESS? NO . GASTROENTEROLOGY: ANY NEW CHANGE IN BOWEL CONTROL? NO . GENITOURINARY: ANY NEW CHANGE IN BLADDER CONTROL? NO . IS THERE A CHANCE YOU COULD BE ? NO . HEMATOLOGY/LYMPH: DO YOU TAKE ANY BLOOD THINNERS? (FOR EXAMPLE- COUMADIN, PLAVIX, AGGRENOX, PLATEL, PRADAXA, OR XARELTO) NO . WHEN WAS YOUR LAST DOSE? DATE: TIME: . NEUROLOGY: HAVE YOU FALLEN IN THE PAST 6 MONTHS? NO . ANY NEW EXTREMITY NUMBNESS OR WEAKNESS? NO . CARDIOLOGY: DO YOU HAVE A PACEMAKER OR DEFIBRILLATOR? NO . RESPIRATORY: HAVE YOU BEEN SICK IN THE PAST WEEK? NO . FEVER NO . FLU LIKE SYMPTOMS? NO . COUGH NO . INTEGUMENTARY: DO YOU HAVE ANY RASHES OR OPEN SORES? NO . ALLERGIC/IMMUNO: ARE YOU ALLERGIC TO SHELLFISH OR IV DYE? NO . ANY NEW ALLERGIES? NO . PSYCHIATRIC: DO YOU HAVE THOUGHTS OF HURTING YOURSELF OR SOMEONE ELSE? NO . ARE YOU ABUSED, NEGLECTED, OR IN AN UNSAFE ENVIRONMENT? NO . ENDOCRINOLOGY: ARE YOU DIABETIC? NO . OTHER: DO YOU NEED ANY PRESCRIPTIONS? NO . IF YES, PLEASE LIST: ____ . ANY NEW PROBLEMS WITH YOUR MEDICATIONS? NO . WHEN DID YOU LAST EAT? ____ . WHEN DID YOU LAST DRINK? ____ . WHAT DID YOU LAST DRINK? ____ . NAME OF PERSON DRIVING YOU HOME? ____ . DO YOU HAVE ANY OTHER QUESTIONS OR CONCERNS NO . VITAL SIGNS WT 147.8 LBS, HT 64", BMI 25.37 INDEX, BP 124/68 MM HG, HR 71 /MIN, RR 16 /MIN, TEMP 97.2 F, OXYGEN SAT % 98%, NA INITIALS TL 1118, REVIEWED BY: CS. EXAMINATION GENERAL EXAMINATION: GENERAL APPEARANCE:BROUGHT INTO CLINIC BY HER IN WHEELCHAIR. . PSYCHALERT , ORIENTED X 3 , APPROPRIATE MOOD AND AFFECT . SMILING AND TALKIATIVE. LUNGS:CLEAR TO AUSCULTATION BILATERALLY. HEART:HEART RATE REGULAR. ABDOMEN:SOFT, NON-TENDER, NO ORGANOMEGALY, BOWEL SOUNDS ARE NORMAL. MILD TENDERNESS WITH PALPATION OVER RIGHT INCISION OVER SYMPHYSIS PUBIS. NO EDEMA, NO REDNESS, NO EXUDATE, NO SWELLLING. NO PALPABLE NEUROMA FELT. FULL ROM AT HIPS BILATERALLY. ABLE TO RISE EASILY TO STANDING POSITION. POSTURE UPRIGHT. GAIT NONANTALGIC. 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 LISTEN TO YOUR BODY. CALL IF PAIN RETURNS. PROCEDURE CODES FA211 ESTABILISHED PATIENT [facility] CHARGE DISPOSITION & COMMUNICATION FOLLOW UP 6 MONTHS ELECTRONICALLY SIGNED BY AYANA HAYES ON 01/18/2017 AT 11:21 AM EDT DISCLAIMER : THIS IS A VISIT SUMMARY EXTRACTED FROM THE [employer] CHART. IT IS NOT A COPY OF THE [employer] PROGRESS NOTE. HEIDE
== END ==
LOC: M PAIN 11:00
PROVIDERS: ATTEND Nurse Practitioner Family
DX: D36.15 Benign neoplasm of peripheral nerves and autonomic nervous system of abdomen (principal); G57.91 Unspecified mononeuropathy of right lower limb; Z79.899 Other long term (current) drug therapy; Z79.3 Long term (current) use of hormonal contraceptives; Z88.5 Allergy status to narcotic agent

== ENCOUNTER → 2017-08-06 | Outpatient (REF) | payer OTHER ==
[2017-08-06 16:53] LABS: C REACTIVE PROTEIN QUANTITATIV < 0.30 MG/DL (0.00-0.30)
== END ==
LOC: M LAB REF 16:18
DX: G50.1 Atypical facial pain (principal)

== ENCOUNTER → 2018-03-18 | Outpatient (CLI) | payer BC ==
[2018-03-18 18:14] LABS: BASO % 0.5 % (0.0-1.0); EOS # 0.1 10^3/uL (0.0-0.50); EOS % 0.8 % (0.0-3.0); HEMATOCRIT 37.1 % (36.0-47.0); IMMATURE GRANULOCYTE % 0.2 % (0-3.0); LYMPH # 1.6 10^3/uL (1.5-4.5); LYMPH % 18.7 % (24.0-44.0); MEAN CORPUSCULAR HEMOGLOBIN 29.3 pg (27.0-33.0); MEAN CORPUSCULAR HGB CONC 32.3 g/dl (32.0-36.5); MEAN CORPUSCULAR VOLUME 90.7 fl (80.0-96.0); MONO # 0.4 10^3/uL (0.0-0.8); MONO % 4.8 % (0.0-5.0); NEUTROPHILS # 6.5 10^3/uL (1.8-7.7); PLATELET COUNT, AUTOMATED 232 10^3/uL (150-450); RED BLOOD COUNT 4.09 10^6/uL (4.00-5.40); RED CELL DISTRIBUTION WIDTH 13.5 % (11.5-14.5); WHITE BLOOD COUNT 8.6 10^3/uL (4.0-10.0)
[2018-03-18 20:29] LABS: CHLAMYDIA DNA AMPLIFICATION NEGATIVE (NEGATIVE); GC DNA AMPLIFICATION NEGATIVE (NEGATIVE)
[2018-03-21 11:29] LABS: RUBELLA IgG QUALITATIVE IMMUNE (IMMUNE)
[2018-03-21 11:32] LABS: HBsAg Prenatal NEGATIVE (NEGATIVE)
[2018-03-21 11:58] LABS: HEPATITIS C VIRUS ABY INDEX 0.1 INDEX (<0.8)
[2018-03-23 18:27] LABS: HIV 1&2 SCREEN CENTAUR NEGATIVE (NEGATIVE)
== END ==
LOC: M SMT 12:55
DX: Z34.81 Encounter for supervision of other normal pregnancy, first trimester (principal); Z3A.08 8 weeks gestation of pregnancy
CPT/HCPCS: 86762

== ENCOUNTER → 2018-05-18 | Outpatient (CLI) | payer BC | LOC: M SMT 07:59 | DX: Z34.82 Encounter for supervision of other normal pregnancy, second trimester (principal); Z36.89 Encounter for other specified antenatal screening; Z3A.18 18 weeks gestation of pregnancy | CPT/HCPCS: 76811 ==

== ENCOUNTER → 2018-07-22 | Outpatient (CLI) | payer BC ==
[2018-07-22 13:09] LABS: BASO % 0.2 % (0.0-1.0); EOS # 0.1 10^3/uL (0.0-0.50); EOS % 0.5 % (0.0-3.0); HEMATOCRIT 34.4 % (36.0-47.0); HEMOGLOBIN 10.9 g/dl (12.0-15.5); LYMPH # 1.4 10^3/uL (1.5-4.5); LYMPH % 13.7 % (24.0-44.0); MEAN CORPUSCULAR HEMOGLOBIN 30.4 pg (27.0-33.0); MEAN CORPUSCULAR HGB CONC 31.7 g/dl (32.0-36.5); MEAN CORPUSCULAR VOLUME 96.1 fl (80.0-96.0); MONO # 0.5 10^3/uL (0.0-0.8); MONO % 4.7 % (0.0-5.0); NEUTROPHILS % 80.2 % (36.0-66.0); PLATELET COUNT, AUTOMATED 260 10^3/uL (150-450); RED BLOOD COUNT 3.58 10^6/uL (4.00-5.40)
== END ==
LOC: M SMT 09:21
PROVIDERS: ATTEND Specialist
DX: Z34.82 Encounter for supervision of other normal pregnancy, second trimester (principal)

== ENCOUNTER → 2018-08-23 | Outpatient (CLI) | payer BC ==
[2018-08-23 13:17] LABS: HEMATOCRIT 32.2 % (36.0-47.0); HEMOGLOBIN 10.2 g/dl (12.0-15.5); MEAN CORPUSCULAR HEMOGLOBIN 29.3 pg (27.0-33.0); MEAN CORPUSCULAR HGB CONC 31.7 g/dl (32.0-36.5); MEAN CORPUSCULAR VOLUME 92.5 fl (80.0-96.0); PLATELET COUNT, AUTOMATED 245 10^3/uL (150-450); RED BLOOD COUNT 3.48 10^6/uL (4.00-5.40); WHITE BLOOD COUNT 11.4 10^3/uL (4.0-10.0)
== END ==
LOC: M SMT 09:27
PROVIDERS: ATTEND Specialist
DX: Z34.83 Encounter for supervision of other normal pregnancy, third trimester (principal); Z36.89 Encounter for other specified antenatal screening

== ENCOUNTER → 2018-09-13 | Outpatient (REF) | payer BC ==
[~2018-09-13] MED LIST changes: +TYLE325T5 PO; +UNIS25TA3 PO
== END ==
LOC: M LAB REF 17:03
PROVIDERS: ATTEND Specialist
DX: Z34.83 Encounter for supervision of other normal pregnancy, third trimester (principal); Z3A.00 Weeks of gestation of pregnancy not specified

== ENCOUNTER 2018-09-22 05:12 | Inpatient (IN) | payer BC ==
[~2018-09-22] VITALS: Ht 160 cm; Wt 86.8 kg
[2018-09-22] MEDS ORDERED: BICITRA 30ML SOLN UDC PO ONE (05:45)
[2018-09-22] MEDS ORDERED: LR 800 ML IV ONE (05:45)
[2018-09-22] MEDS ORDERED: LR 1,000 ML IV SCH (05:45)
[2018-09-22 06:11] LABS: HEMATOCRIT 29.6 % (36.0-47.0); HEMOGLOBIN 9.3 g/dl (12.0-15.5); MEAN CORPUSCULAR HEMOGLOBIN 28.6 pg (27.0-33.0); MEAN CORPUSCULAR HGB CONC 31.4 g/dl (32.0-36.5); MEAN CORPUSCULAR VOLUME 91.1 fl (80.0-96.0); PLATELET COUNT, AUTOMATED 215 10^3/uL (150-450); RED BLOOD COUNT 3.25 10^6/uL (4.00-5.40); WHITE BLOOD COUNT 9.6 10^3/uL (4.0-10.0)
[2018-09-22] MEDS ORDERED: OXYC1TAB23 PO (06:35)
[2018-09-22] MEDS ORDERED: IBUP1TAB7 PO (06:36)
[2018-09-22] MEDS ORDERED: MORPHINE PRES-FREE INJ 10 MG/10 ML VIAL (J2274) As Ordered ONE (07:12)
[2018-09-22] MEDS ORDERED: OXYTOCIN INJ 10 UNITS/ML VIAL (J2590) As Ordered ONE (07:13)
[2018-09-22] MEDS ORDERED: METOCLOPRAMIDE INJ 10MG/2ML VIAL (J2765) IV PRN (08:06)
[2018-09-22] MEDS ORDERED: diphenhydrAMINE INJ 50MG/ML VIAL (J1200) IV PRN (08:06)
[2018-09-22] MEDS ORDERED: NALBUPHINE HCL 10 MG/ML AMP (J2300) IV PRN ×2 (08:06→09:30)
[2018-09-22] MEDS ORDERED: ONDANSETRON 4MG/2ML VIAL (J2405) IV PRN ×3 (08:06→09:30)
[2018-09-22] MEDS ORDERED: NALOXONE INJ 0.4 MG/1 ML VIAL (J2310) IV PRN ×2 (08:06)
[2018-09-22] MEDS ORDERED: ePHEDrine SULFATE 25 MG/5 ML(5MG/ML) SYRINGE As Ordered ONE (08:10)
[2018-09-22] MEDS ORDERED: PHENYLephrine HCL 500 MCG/5 ML (100MCG/ML) SYRINGE (J2370) As Ordered ONE (08:10)
[2018-09-22] MEDS ORDERED: ONDANSETRON 4MG/2ML VIAL (J2405) As Ordered ONE (08:25)
[2018-09-22] MEDS ORDERED: OXYTOCIN DRIP 30 UNITS in APPROPRIATE DILUENT 1 EA IV SCH (09:14)
[2018-09-22] MEDS ORDERED: PERCOCET 5MG/325MG TAB PO PRN (09:15)
[2018-09-22] MEDS ORDERED: RHOGAM 300 MCG (1500 IU) INJ (J2790) IM SCH (09:15)
[2018-09-22] MEDS ORDERED: MEASLES,MUMPS,RUBELLA VACCINE INJ (MMR-II) (90707) SC SCH (09:15)
[2018-09-22] MEDS ORDERED: NORCO, ANEXSIA 5/325MG TABLET (HYDROcodone/ACETAMINOPHEN) PO PRN (09:30)
[2018-09-22] MEDS ORDERED: fentaNYL 100 MCG/2 ML INJECTION (J3010) IV PRN (09:30)
[2018-09-22] MEDS ORDERED: MEPERIDINE INJ 25 MG/ML VIAL (J2175) IV PRN (09:30)
[2018-09-22] MEDS ORDERED: KETOROLAC 30 MG/ML VIAL (J1885) IV PRN (09:30)
[2018-09-22] MEDS ORDERED: OXYTOCIN 30 UNITS IN 0.9% NaCl 500ML IV BAG (J2590) As Ordered ONE (09:35)
[2018-09-22] MEDS ORDERED: KETOROLAC 30 MG/ML VIAL (J1885) As Ordered ONE (09:52)
[2018-09-22 10:45] VITALS: BP 100/50
[2018-09-22 11:45] VITALS: BP 114/54
[2018-09-22] MEDS: PRENATAL VITAMINS CHEWABLE TABLET PO SCH (12:02)
[2018-09-22 12:45] VITALS: BP 104/52
[2018-09-22 13:45] VITALS: BP 98/50
--- NOTE | 2018-09-22 14:30 | RO ---
DATE OF PROCEDURE: 09/22/2018 PREPROCEDURE DIAGNOSIS: 37 and 0/7 weeks gestation, prior myomectomy, prior section, breech presentation. POSTPROCEDURE DIAGNOSIS: 37 and 0/7 weeks gestation, prior myomectomy, prior section, breech presentation. PROCEDURE: Repeat low transverse section. Bilateral tubal ligation. SURGEON: Dr. Héctor Mendes CAGER OPERATOR: Rehana Sotomayor CNM ANESTHESIA: Spinal. ESTIMATED BLOOD LOSS: 600 mL. URINE OUTPUT: 400 mL., FINDINGS: 2670 gram, 5 pound 14 ounce, male infant, Apgars 9 and 9, in the footling breech position. DESCRIPTION OF PROCEDURE: The patient was taken to the operating room where spinal anesthesia was induced. She was prepped and draped in sterile fashion in the supine position. A Austin catheter was placed. A Pfannenstiel skin incision was made with the scalpel and carried through to the fascia. The fascia was nicked and extended. The fascia was dissected off the rectus muscles. The rectus muscles were divided. The peritoneal cavity was entered. The bladder flap was created. A curvilinear incision was made in the lower uterine segment until clear fluid was noted. This was extended manually. The was delivered from the footling breech position using standard maneuvers without difficulty. The cord was doubly clamped and cut. The was handed off to the awaiting nurses. The placenta was expressed. The uterus was exteriorized and cleared of clots and debris. The uterine incision was closed with #0 Vicryl in a running locked fashion. A second imbricating layer of #0 Vicryl was placed. Attention was turned to the fallopian tubes. The right fallopian tube was noted to be surgically absent. The left fallopian tube was grasped with a Nils clamp at its mid portion. A window was created in the broad ligament. A free tie of #3-0 chromic was placed around a segment of each knuckle of tube near the Nils clamp. A segment of tube was excised and sent to pathology. The uterus placed back in the abdominal cavity. The peritoneum was closed with #2-0 Vicryl in a running fashion. The fascia was closed with #0 Vicryl in a running fashion. The deep layer was irrigated and the skin was closed with #4-0 Monocryl subcuticular sutures. Sponge, instrument and needle counts were correct. Rehana Sotomayor CNM, assisted with all aspects of the procedure from beginning to end. She helped create incision in all layers of the abdomen as well as the uterus. She helped with expulsion of the fetus and closure of all subsequent layers.
[2018-09-22] MEDS: LR 1,000 ML IV SCH ×3 (14:50→22:34)
[2018-09-22] MEDS ORDERED: LR 500 ML IV ONE (15:15)
[2018-09-22] MEDS: KETOROLAC 30 MG/ML VIAL (J1885) IV SCH ×2 (16:01→22:34)
[2018-09-22 18:11] VITALS: BP 104/54
[2018-09-22] MEDS: DOCUSATE SODIUM 100 MG CAP PO PRN (20:48)
[2018-09-22] MEDS: PERCOCET 5MG/325MG TAB PO PRN (20:49)
[2018-09-22 22:00] VITALS: BP 107/56
[2018-09-23 02:00] VITALS: BP 92/53
[2018-09-23] MEDS: KETOROLAC 30 MG/ML VIAL (J1885) IV SCH (04:46)
[2018-09-23 06:00] VITALS: BP 94/52
[2018-09-23] MEDS: PERCOCET 5MG/325MG TAB PO PRN ×4 (06:05→21:11)
[2018-09-23 06:36] LABS: HEMATOCRIT 24.2 % (36.0-47.0); HEMOGLOBIN 7.5 g/dl (12.0-15.5); MEAN CORPUSCULAR HEMOGLOBIN 29.4 pg (27.0-33.0); MEAN CORPUSCULAR VOLUME 94.9 fl (80.0-96.0); PLATELET COUNT, AUTOMATED 163 10^3/uL (150-450); RED BLOOD COUNT 2.55 10^6/uL (4.00-5.40); WHITE BLOOD COUNT 10.9 10^3/uL (4.0-10.0)
[2018-09-23] MEDS: PRENATAL VITAMINS CHEWABLE TABLET PO SCH (09:20)
[2018-09-23 10:00] VITALS: BP 125/60
[2018-09-23] MEDS: SIMETHICONE 80 MG CHEW TAB PO PRN ×2 (10:36→17:44)
[2018-09-23] MEDS: IBUPROFEN 800 MG TAB PO SCH ×2 (11:20→19:49)
[2018-09-23 14:00] VITALS: BP 134/59
[2018-09-23] MEDS: DOCUSATE SODIUM 100 MG CAP PO PRN (17:44)
[2018-09-23 18:00] VITALS: BP 115/71
[2018-09-23 22:02] VITALS: BP 119/60
[2018-09-24] MEDS: PERCOCET 5MG/325MG TAB PO PRN ×2 (01:09→08:13)
[2018-09-24] MEDS: IBUPROFEN 800 MG TAB PO SCH ×2 (03:51→11:42)
[2018-09-24 05:26] VITALS: BP 114/68
[2018-09-24 07:22] LABS: HEMATOCRIT 22.7 % (36.0-47.0); MEAN CORPUSCULAR HEMOGLOBIN 29.2 pg (27.0-33.0); MEAN CORPUSCULAR HGB CONC 30.8 g/dl (32.0-36.5); MEAN CORPUSCULAR VOLUME 94.6 fl (80.0-96.0); PLATELET COUNT, AUTOMATED 162 10^3/uL (150-450)
[2018-09-24] MEDS: PRENATAL VITAMINS CHEWABLE TABLET PO SCH (08:13)
[2018-09-24 17:18] LABS: HEMATOCRIT 28.2 % (36.0-47.0); HEMOGLOBIN 8.9 g/dl (12.0-15.5); MEAN CORPUSCULAR HEMOGLOBIN 28.7 pg (27.0-33.0); MEAN CORPUSCULAR HGB CONC 31.6 g/dl (32.0-36.5); PLATELET COUNT, AUTOMATED 192 10^3/uL (150-450); WHITE BLOOD COUNT 9.5 10^3/uL (4.0-10.0)
[2018-09-24] MEDS ORDERED: COLA100C5 PO (18:16)
--- NOTE | 2018-09-24 19:47 | NUR ---
Discharge Summary Date of admission: 09/22/2018 Date of discharge: 09/24/2018 Admitting diagnosis: 37+0 weeks gestation, history of myomectomy, breech presentation, history of previous low transverse section, satisfied parity Discharge diagnosis: Status post repeat low transverse section with bilateral tubal ligation. Single, liveborn delivered via . Discharge Summary: 33 year-old G4 now P3013. She was admitted on 09/22/2018 at 37+0 weeks EGA for a scheduled repeat low-transverse section and tubal ligation. The delivery was uncomplicated. The patient's postoperative course was complicated by post operative symptomatic anemia. On postoperative day #2, she received 2 units of packed red blood cells. She had an appropriate rise in her hemoglobin and hematocrit level . She felt much improved after the blood transfusion and became desirous of discharge from hospital to home. By postoperative day #2 after the blood transfusion, the patient was meeting all discharge criteria. Her pain was well controlled on oral pain meds. She was ambulating without assistance, voiding spontaneously, tolerating a regular diet, and her lochia/bleeding was minimal. Physical exam on date of discharge: Vitals: normotensive, normal HR, afebrile Heart: regular rate and rhythm with no murmurs, gallops, rubs. Lungs: clear to auscultation bilaterally, no wheezes, crackles, rales, ronchi Abd: soft, non-distended, appropriately tender. Normoactive bowel sounds. Incision: clean, dry, intact without surrounding erythema or induration. Ext: non-edematous, non-tender, negative Ric's sign bilaterally Preoperative Hgb/Hct: 9.3/29.6 Postoperative Hgb/Hct: 7.5/24.2, 7.0/22.7 Posttransfusion hemoglobin and hematocrit: 8.9/28.2 Assessment/Plan: 33 year-old G4 now P3013 status post repeat low transverse delivery with [place] bilateral tubal ligation. Postoperative day #2. Hemodynamically stable, afebrile, with good pain control. Meeting all discharge criteria. -Routine infectious, fever, pain, and bleeding precautions reviewed -Surgical wound/incisional care / precautions reviewed. -Discharge medications: Percocet, Motrin, Colace. -Outpatient follow up in 1-2 weeks for a routine incision / postoperative check. Dr. Johnny Alva, DO, FACOG
== END 2018-09-24 20:00 | disposition home or self-care (01) | DRG 540 ==
LOC: M LDI 05:12 → M OBS 10:38
PROVIDERS: ADMIT Specialist; ATTEND Specialist
PROC: 0UB70ZZ Excision of Bilateral Fallopian Tubes, Open Approach (ICD-10-PCS; 2018-09-22)
PROC: 10D00Z1 Extraction of Products of Conception, Low, Open Approach (ICD-10-PCS; principal; 2018-09-22 07:30)
DX: O34.211 Maternal care for low transverse scar from previous cesarean delivery (principal); O32.8XX0 Maternal care for other malpresentation of fetus, not applicable or unspecified; Z3A.37 37 weeks gestation of pregnancy; Z37.0 Single live birth; Z30.2 Encounter for sterilization

== ENCOUNTER → 2020-01-29 | Outpatient (CLI) | payer BC ==
[~2020-01-29] MED LIST changes: +IBUP1TAB7 PO; +ZONI100C17 PO; -ZONI100C2 PO
--- NOTE | 2020-01-29 08:55 | REP ---
Clinical: Pelvic pain. Inguinal hernia. Technique: Axial noncontrast images from the lung bases to the pubic symphysis with coronal and sagittal re-formations. Comparison: 11/27/2016. Findings: Lung bases are clear. Visualized heart and pericardium normal. Liver, spleen, pancreas, gallbladder, bilateral adrenal glands and kidneys are essentially normal for noncontrast evaluation. Small hepatic hypodensities remain stable and compatible with cysts. The enteric system suggests mild fecal stasis without obstruction or acute inflammatory process. Normal terminal ileum and appendix are identified in the right lower quadrant. Pelvis demonstrates normal bladder and age-appropriate uterus/adnexa. Small amount of free fluid in the posterior cul-de-sac likely physiologic. No significant ascites. No free air. No adenopathy. Abdominal aorta without aneurysm. No obvious hernia. Surrounding musculoskeletal structures appear intact. Impression: 1. Small amount of free fluid in the pelvis likely physiologic. 2. Mild fecal stasis. 3. No acute abdominopelvic pathology appreciated. Electronically Signed by Keegan Barton MD 01/29/2020 08:46 A
== END ==
LOC: M RAD 06:51
PROVIDERS: ATTEND Specialist
DX: K40.90 Unilateral inguinal hernia, without obstruction or gangrene, not specified as recurrent (principal)

== ENCOUNTER → 2021-05-13 | Outpatient (REF) | payer OTHER ==
[2021-05-13 15:59] LABS: BASO % 0.7 % (0.0-1.0); EOS # 0.1 10^3/uL (0.0-0.5); HEMATOCRIT 34.4 % (36.0-47.0); HEMOGLOBIN 10.1 g/dl (12.0-15.5); LYMPH # 1.2 10^3/uL (1.5-5.0); LYMPH % 26.7 % (24.0-44.0); MEAN CORPUSCULAR HEMOGLOBIN 23.6 pg (27.0-33.0); MEAN CORPUSCULAR HGB CONC 29.4 g/dl (32.0-36.5); MEAN CORPUSCULAR VOLUME 80.4 fl (80.0-96.0); MONO # 0.3 10^3/uL (0.0-0.8); MONO % 5.6 % (2.0-8.0); NEUTROPHILS # 2.9 10^3/uL (1.5-8.5); NEUTROPHILS % 64.8 % (36.0-66.0); PLATELET COUNT, AUTOMATED 282 10^3/uL (150-450); RED BLOOD COUNT 4.28 10^6/uL (4.00-5.40); WHITE BLOOD COUNT 4.5 10^3/uL (4.0-10.0)
[2021-05-13 16:39] LABS: ALBUMIN 4.1 GM/DL (3.2-5.2); ALT/SGPT 18 U/L (12-78); BILIRUBIN,TOTAL 0.4 MG/DL (0.2-1.0); BLOOD UREA NITROGEN 12 MG/DL (7-18); CALCIUM LEVEL 9.4 MG/DL (8.5-10.1); CARBON DIOXIDE LEVEL 26 MEQ/L (21-32); CHLORIDE LEVEL 109 MEQ/L (98-107); CREATININE FOR GFR 0.85 MG/DL (0.55-1.30); FREE T4 0.94 NG/DL (0.76-1.46); GLOMERULAR FILTRATION RATE > 60.0 (>60); GLUCOSE, FASTING 97 MG/DL (70-100); POTASSIUM SERUM 4.2 MEQ/L (3.5-5.1); SODIUM LEVEL 141 MEQ/L (136-145); TOTAL PROTEIN 7.7 GM/DL (6.4-8.2)
[2021-05-14 12:45] LABS: IRON (FE) 42 UG/DL (50-170); PERCENT SATURATION 8.1 % (13.2-45.0); TOTAL IRON BINDING CAPACITY 517 UG/DL (250-450)
[2021-05-14 12:56] LABS: VITAMIN B12 LEVEL 371 PG/ML
[2021-05-14 13:03] LABS: FOLATE > 24.0 NG/ML
== END ==
LOC: M SFHCCLAY 10:02
PROVIDERS: ATTEND Nurse Practitioner Family
DX: K59.00 Constipation, unspecified (principal); D64.9 Anemia, unspecified

== ENCOUNTER → 2021-06-27 | Outpatient (REF) | payer OTHER | LOC: M SFHCWAGY 17:16 | PROVIDERS: ATTEND Specialist | DX: Z12.4 Encounter for screening for malignant neoplasm of cervix (principal) | CPT/HCPCS: 87624; G0123 ==

== ENCOUNTER → 2021-11-07 | Outpatient (CLI) | payer BC, OTHER ==
[~2021-11-07] MED LIST changes: +LORA-243 PO
== END ==
LOC: M LABSMTC 10:02
PROVIDERS: ATTEND Anesthesiology
DX: Z01.812 Encounter for preprocedural laboratory examination (principal); Z20.822 Contact with and (suspected) exposure to COVID-19

== ENCOUNTER 2021-11-10 11:37 | Day surgery (SDC) | payer BC, OTHER ==
[~2021-11-10] VITALS: Ht 162.6 cm; Wt 61.6 kg
[~2021-11-10 11:37] MED LIST changes: +NS 1,000 ML IV ONE; -ZONI100C17 PO; +ZONI100C67 PO
[2021-11-10] MEDS ORDERED: SIME125C4 PO (12:20)
[2021-11-10] MEDS ORDERED: propofoL 200 MG/20 ML VIAL As Ordered ONE ×2 (13:07→14:04)
[2021-11-10] MEDS ORDERED: LIDOCAINE 2% 100MG/5ML SDV (FOR ANES.) As Ordered ONE (13:07)
[2021-11-10] MEDS ORDERED: fentaNYL 100 MCG/2 ML INJECTION As Ordered ONE (13:44)
[2021-11-10 14:42] VITALS: BP 114/70
== END 2021-11-10 14:44 | disposition home or self-care (01) ==
LOC: M OPP 11:37
PROVIDERS: ATTEND Internal Medicine Gastroenterology
DX: D50.9 Iron deficiency anemia, unspecified (principal); Q43.8 Other specified congenital malformations of intestine; K58.1 Irritable bowel syndrome with constipation; K29.70 Gastritis, unspecified, without bleeding; Z79.899 Other long term (current) drug therapy; Z88.5 Allergy status to narcotic agent; Z80.6 Family history of leukemia; Z98.891 History of uterine scar from previous surgery
CPT/HCPCS: 43239; 45378; 88305; J3010

== ENCOUNTER → 2022-04-16 | Outpatient (REF) | payer OTHER ==
[~2022-04-16] MED LIST changes: -NS 1,000 ML IV ONE; +SIME125C4 PO
== END ==
LOC: M SFHCCLAY 10:25
PROVIDERS: ATTEND Physician Assistant
DX: R30.0 Dysuria (principal)

== ENCOUNTER → 2022-04-24 | Outpatient (REF) | payer OTHER ==
[2022-04-24 12:33] LABS: APPEARANCE, URINE MANUAL CLEAR (CLEAR); COLOR, URINE MANUAL DK YELLOW (YELLOW)
[2022-04-24 12:36] LABS: BILIRUBIN, URINE MANUAL NEGATIVE (NEGATIVE); GLUCOSE, URINE (UA) MANUAL NEGATIVE (NEGATIVE); KETONE, URINE MANUAL 1+ mg/dL (NEGATIVE); NITRITE, URINE MANUAL POSITIVE (NEGATIVE); PROTEIN, URINE MANUAL NEGATIVE (NEGATIVE); UROBILINOGEN, URINE MANUAL NORMAL (NORMAL)
[2022-04-24 12:37] LABS: BLOOD URINE MANUAL NEGATIVE (NEGATIVE); LEUKOCYTE ESTERASE, URINE MAN NEGATIVE (NEGATIVE)
[2022-04-24 13:15] LABS: BACTERIA, URINE SMALL AMOUNT; HYALINE CAST, URINE NONE SEEN /lpf (0-1); MUCUS, URINE SMALL AMOUNT (NEGATIVE); SQUAMOUS EPITHELIAL CELL URINE MOD AMOUNT /hpf (SMALL AMT)
== END ==
LOC: M SFHCCLAY 07:10
PROVIDERS: ATTEND Nurse Practitioner Family
DX: R30.0 Dysuria (principal)

== ENCOUNTER → 2022-10-02 | Outpatient (REF) | payer OTHER | LOC: M SFHCCLAY 15:50 | PROVIDERS: ATTEND Physician Assistant | DX: Z53.9 Procedure and treatment not carried out, unspecified reason (principal) ==

== ENCOUNTER → 2022-11-12 | Outpatient (REF) | payer OTHER ==
[2022-11-12 18:28] LABS: BASO % 0.4 % (0.0-1.0); EOS % 0.4 % (0.0-3.0); HEMATOCRIT 35.3 % (36.0-47.0); HEMOGLOBIN 10.7 g/dl (12.0-15.5); LYMPH # 1.2 10^3/uL (1.5-5.0); LYMPH % 16.5 % (24.0-44.0); MEAN CORPUSCULAR HEMOGLOBIN 25.9 pg (27.0-33.0); MEAN CORPUSCULAR HGB CONC 30.3 g/dl (32.0-36.5); MEAN CORPUSCULAR VOLUME 85.5 fl (80.0-96.0); MONO # 0.5 10^3/uL (0.0-0.8); MONO % 6.1 % (2.0-8.0); NEUTROPHILS # 5.6 10^3/uL (1.5-8.5); NEUTROPHILS % 76.5 % (36.0-66.0); PLATELET COUNT, AUTOMATED 270 10^3/uL (150-450); RED BLOOD COUNT 4.13 10^6/uL (4.00-5.40); WHITE BLOOD COUNT 7.4 10^3/uL (4.0-10.0)
[2022-11-12 18:47] LABS: ALBUMIN 4.1 G/DL (3.2-5.2); ALKALINE PHOSPHATASE 62 U/L (46-116); ALT/SGPT 16 U/L (7.0-40); AST/SGOT 18 U/L (<34); BILIRUBIN,TOTAL 0.3 MG/DL (0.3-1.2); BLOOD UREA NITROGEN 13 MG/DL (9-23); CALCIUM LEVEL 9.1 MG/DL (8.5-10.1); CARBON DIOXIDE LEVEL 26 MMOL/L (20-31); CHLORIDE LEVEL 104 MMOL/L (98-107); CHOLESTEROL LEVEL 174 MG/DL (<200); CHOLESTEROL RISK RATIO 2.25 (<5); CREATININE FOR GFR 0.71 MG/DL (0.55-1.30); GLOMERULAR FILTRATION RATE > 60.0 (>60); GLUCOSE, FASTING 94 MG/DL (60-100); HDL CHOLESTEROL 77.3 MG/DL (>40); IRON (FE) 18 UG/DL (50-170); LDL CHOLESTEROL 81.1 MG/DL (<100); NON-HDL-C 96.7 MG/DL; PERCENT SATURATION 4.6 % (13.2-45.0); POTASSIUM SERUM 4.4 MMOL/L (3.5-5.1); SODIUM LEVEL 136 MMOL/L (136-145); TOTAL IRON BINDING CAPACITY 395 UG/DL (250-425); TOTAL PROTEIN 7.3 G/DL (5.7-8.2); TRIGLYCERIDES LEVEL 78 MG/DL (<150)
[2022-11-12 18:49] LABS: VITAMIN B12 LEVEL 294 PG/ML (211-911)
[2022-11-12 18:53] LABS: FOLATE 23.14 NG/ML (>5.4)
== END ==
LOC: M SFHCCLAY 14:50
PROVIDERS: ATTEND Nurse Practitioner Family
DX: D64.9 Anemia, unspecified (principal); K59.00 Constipation, unspecified; Z13.220 Encounter for screening for lipoid disorders

== ENCOUNTER → 2022-11-27 | Outpatient (REF) | payer OTHER | LOC: M SFHCCLAY 12:59 | PROVIDERS: ATTEND Physician Assistant | DX: R30.0 Dysuria (principal) ==

== ENCOUNTER → 2022-12-03 | Outpatient (REF) | payer OTHER | LOC: M SFHCCAPE 14:25 | PROVIDERS: ATTEND Physician Assistant | DX: R30.0 Dysuria (principal) ==

== ENCOUNTER → 2023-01-15 | Outpatient (REF) | payer OTHER | LOC: M SFHCCLAY 15:11 | PROVIDERS: ATTEND Physician Assistant Medical | DX: R30.0 Dysuria (principal) ==

== ENCOUNTER → 2023-01-26 | Outpatient (CLI) | payer OTHER ==
[2023-01-26 14:02] LABS: HEMATOCRIT 37.2 % (36.0-47.0); HEMOGLOBIN 10.8 g/dl (12.0-15.5); MEAN CORPUSCULAR HEMOGLOBIN 25.8 pg (27.0-33.0); MEAN CORPUSCULAR VOLUME 88.8 fl (80.0-96.0); PLATELET COUNT, AUTOMATED 306 10^3/uL (150-450); RED BLOOD COUNT 4.19 10^6/uL (4.00-5.40); WHITE BLOOD COUNT 6.4 10^3/uL (4.0-10.0)
[2023-01-26 14:33] LABS: IRON (FE) 26 UG/DL (50-170); PERCENT SATURATION 6.5 % (13.2-45.0); TOTAL IRON BINDING CAPACITY 397 UG/DL (250-425); VITAMIN B12 LEVEL 381 PG/ML (211-911)
[2023-01-26 14:34] LABS: FOLATE > 24.00 NG/ML (>5.4)
[2023-01-26 14:35] LABS: FERRITIN 4.2 NG/ML (7.3-270.7); THYROID STIMULATING HORMONE 3.068 uIU/ML (0.55-4.78)
[2023-01-26 14:36] LABS: FREE T4 0.91 NG/DL (0.89-1.76)
== END ==
LOC: M PLALAB 09:34
PROVIDERS: ATTEND Internal Medicine Hematology
DX: D50.0 Iron deficiency anemia secondary to blood loss (chronic) (principal)

== ENCOUNTER 2023-02-03 14:38 | Outpatient (CLI) | payer OTHER ==
[~2023-02-03] VITALS: Ht 162.6 cm; Wt 59.5 kg
[~2023-02-03 14:38] MED LIST changes: +ALBUTEROL SULFATE 2.5MG/0.5ML INH NEB SOLN INH PRN; +CURRENT HEIGHT AND WEIGHT NEEDED ON PATIENT XX SCH; +EPINEPHrine INJ 1 MG/ML 1ML AMP IM PRN; +FERRIC CARBOXYMALTOSE INJ 750 MG in NS 250 ML (>50kg) IV ONE; +NS 1,000 ML IV SCH; +diphenhydrAMINE 50MG/ML VIAL IV PRN; +methylPREDNISolone 125MG 2ML VIAL IV PRN
[2023-02-03 14:50] VITALS: BP 118/62; O2SAT 100
[2023-02-03] MEDS ORDERED: IBUP200C33 PO (15:32)
[2023-02-03] MEDS ORDERED: MULTTAB20 PO (15:32)
[2023-02-03] MEDS ORDERED: NITR1CAP27 PO (15:32)
[2023-02-03] MEDS ORDERED: FERRIC CARBOXYMALTOSE INJ 750 MG in NS 250 ML (>50kg) IV ONE ×3 (16:00)
[2023-02-03 16:35] VITALS: BP 113/68; O2SAT 100
== END 2023-02-03 16:40 ==
LOC: M INFU 14:38
PROVIDERS: ATTEND Internal Medicine Hematology
DX: E61.1 Iron deficiency (principal)
CPT/HCPCS: 96365; J1439

== ENCOUNTER → 2023-02-26 | Outpatient (REF) | payer OTHER ==
[~2023-02-26] MED LIST changes: -ALBUTEROL SULFATE 2.5MG/0.5ML INH NEB SOLN INH PRN; -CURRENT HEIGHT AND WEIGHT NEEDED ON PATIENT XX SCH; -EPINEPHrine INJ 1 MG/ML 1ML AMP IM PRN; -FERRIC CARBOXYMALTOSE INJ 750 MG in NS 250 ML (>50kg) IV ONE; +IBUP200C33 PO; +MULTTAB20 PO; +NITR1CAP27 PO; -NS 1,000 ML IV SCH; -diphenhydrAMINE 50MG/ML VIAL IV PRN; -methylPREDNISolone 125MG 2ML VIAL IV PRN
== END ==
LOC: M SFHCWAGY 17:46
PROVIDERS: ATTEND Specialist
DX: Z12.4 Encounter for screening for malignant neoplasm of cervix (principal)
CPT/HCPCS: 87624; G0123

== ENCOUNTER → 2023-03-05 | Outpatient (CLI) | payer OTHER | LOC: M WHC 09:59 | PROVIDERS: ATTEND Specialist | DX: N92.6 Irregular menstruation, unspecified (principal) ==

== ENCOUNTER → 2023-05-27 | Outpatient (REF) | payer OTHER ==
[2023-05-27 12:01] LABS: BASO % 0.7 % (0.0-1.0); EOS # 0.1 10^3/uL (0.0-0.5); EOS % 1.6 % (0.0-3.0); HEMATOCRIT 38.4 % (36.0-47.0); HEMOGLOBIN 12.3 g/dl (12.0-15.5); LYMPH # 1.1 10^3/uL (1.5-5.0); LYMPH % 18.9 % (24.0-44.0); MEAN CORPUSCULAR HEMOGLOBIN 29.9 pg (27.0-33.0); MEAN CORPUSCULAR VOLUME 93.4 fl (80.0-96.0); MONO # 0.5 10^3/uL (0.0-0.8); MONO % 8.7 % (2.0-8.0); NEUTROPHILS # 3.9 10^3/uL (1.5-8.5); NEUTROPHILS % 69.9 % (36.0-66.0); PLATELET COUNT, AUTOMATED 228 10^3/uL (150-450); RED BLOOD COUNT 4.11 10^6/uL (4.00-5.40); WHITE BLOOD COUNT 5.6 10^3/uL (4.0-10.0)
== END ==
LOC: M SFHCPLAZ 07:17
PROVIDERS: ATTEND Internal Medicine Hematology
DX: D50.9 Iron deficiency anemia, unspecified (principal)

== ENCOUNTER → 2023-06-15 | Outpatient (REF) | payer OTHER | LOC: M SFHCCAPE 14:07 | PROVIDERS: ATTEND Physician Assistant Medical | DX: R52 Pain, unspecified (principal) ==

== ENCOUNTER → 2023-06-16 | Outpatient (REF) | payer OTHER ==
[2023-06-16 18:32] LABS: C REACTIVE PROTEIN QUANTITATIV < 0.40 MG/DL (<1.0)
[2023-06-16 18:33] LABS: CPK CREATINE PHOSPHOKINASE 80 U/L (34-145)
[2023-06-16 18:34] LABS: ALBUMIN 3.7 G/DL (3.2-5.2); ALKALINE PHOSPHATASE 55 U/L (46-116); ALT/SGPT 12 U/L (7.0-40); AST/SGOT 12 U/L (<34); BILIRUBIN,TOTAL 0.2 MG/DL (0.3-1.2); BLOOD UREA NITROGEN 8 MG/DL (9-23); CALCIUM LEVEL 8.5 MG/DL (8.5-10.1); CARBON DIOXIDE LEVEL 26 MMOL/L (20-31); CHLORIDE LEVEL 107 MMOL/L (98-107); CREATININE FOR GFR 0.68 MG/DL (0.55-1.30); GLOMERULAR FILTRATION RATE > 60.0 (>60); GLUCOSE, FASTING 84 MG/DL (60-100); POTASSIUM SERUM 4.1 MMOL/L (3.5-5.1); SODIUM LEVEL 140 MMOL/L (136-145); TOTAL PROTEIN 6.5 G/DL (5.7-8.2)
== END ==
LOC: M LABDRAWC 17:20
PROVIDERS: ATTEND Physician Assistant Medical
DX: R52 Pain, unspecified (principal)

== ENCOUNTER → 2023-07-13 | Outpatient (CLI) | payer OTHER | LOC: M CLY 12:08 | PROVIDERS: ATTEND Nurse Practitioner Family | DX: R05.1 Acute cough (principal) ==

== ENCOUNTER 2023-08-09 15:25 | Outpatient (CLI) | payer OTHER ==
[~2023-08-09] VITALS: Ht 162.6 cm; Wt 58.2 kg
[2023-08-09 15:25] VITALS: BP 128/58; O2SAT 100
[~2023-08-09 15:25] MED LIST changes: +ALBUTEROL SULFATE 2.5MG/0.5ML INH NEB SOLN INH PRN; +EPINEPHrine INJ 1 MG/ML 1ML AMP IM PRN; -NITR1CAP27 PO; +NITR50CA51 PO; +diphenhydrAMINE 50MG/ML VIAL IV PRN; +methylPREDNISolone 125MG 2ML VIAL IV PRN
[2023-08-09] MEDS ORDERED: FERRIC CARBOXYMALTOSE INJ 750 MG in NS 250 ML (>50kg) IV ONE ×3 (15:30)
[2023-08-09] MEDS ORDERED: NS 1,000 ML IV SCH (15:30)
[2023-08-09 17:30] VITALS: BP 125/61; O2SAT 100
[2023-08-09 17:35] VITALS: BP 129/68; O2SAT 100
[2023-08-09 18:10] VITALS: BP 115/72; O2SAT 100
== END 2023-08-09 18:10 | disposition home or self-care (01) ==
LOC: M INFU 15:25
PROVIDERS: ATTEND Internal Medicine Hematology
DX: D50.9 Iron deficiency anemia, unspecified (principal); Z88.5 Allergy status to narcotic agent
CPT/HCPCS: 96365; 96366; J1439

== ENCOUNTER 2023-08-16 15:00 | Outpatient (CLI) | payer OTHER ==
[~2023-08-16] VITALS: Ht 162.6 cm; Wt 60.0 kg
[2023-08-16] MEDS ORDERED: FERRIC CARBOXYMALTOSE INJ 750 MG in NS 250 ML (>50kg) IV ONE ×3 (15:15)
[2023-08-16] MEDS ORDERED: NS 1,000 ML IV SCH (15:15)
[2023-08-16 17:00] VITALS: BP 108/62; O2SAT 100
== END 2023-08-16 17:00 ==
LOC: M INFU 15:00
PROVIDERS: ATTEND Internal Medicine Hematology
DX: D50.9 Iron deficiency anemia, unspecified (principal); Z88.5 Allergy status to narcotic agent
CPT/HCPCS: 96365; J1439

== ENCOUNTER → 2023-10-11 | Outpatient (REF) | payer OTHER ==
[~2023-10-11] MED LIST changes: -ALBUTEROL SULFATE 2.5MG/0.5ML INH NEB SOLN INH PRN; -EPINEPHrine INJ 1 MG/ML 1ML AMP IM PRN; -diphenhydrAMINE 50MG/ML VIAL IV PRN; -methylPREDNISolone 125MG 2ML VIAL IV PRN
[2023-10-11 17:39] LABS: BASO # 0.1 10^3/uL (0.0-0.2); BASO % 0.7 % (0.0-1.0); EOS % 0.1 % (0.0-3.0); HEMATOCRIT 35.1 % (36.0-47.0); HEMOGLOBIN 11.7 g/dl (12.0-15.5); LYMPH # 1.1 10^3/uL (1.5-5.0); LYMPH % 14.6 % (24.0-44.0); MEAN CORPUSCULAR HEMOGLOBIN 30.8 pg (27.0-33.0); MEAN CORPUSCULAR HGB CONC 33.3 g/dl (32.0-36.5); MEAN CORPUSCULAR VOLUME 92.4 fl (80.0-96.0); MONO # 0.4 10^3/uL (0.0-0.8); NEUTROPHILS # 5.7 10^3/uL (1.5-8.5); NEUTROPHILS % 79.3 % (36.0-66.0); PLATELET COUNT, AUTOMATED 230 10^3/uL (150-450); WHITE BLOOD COUNT 7.2 10^3/uL (4.0-10.0)
== END ==
LOC: M LABDRAWC 16:40
PROVIDERS: ATTEND Internal Medicine Hematology
DX: D50.9 Iron deficiency anemia, unspecified (principal)

== ENCOUNTER → 2024-01-17 | Outpatient (REF) | payer OTHER ==
[~2024-01-17] MED LIST changes: +AMPH1TAB2 PO; +ATOM18CA6 PO; +HEAL1TAB6 PO; +RIZA10TA64 PO; +VENL150C43 PO
[2024-01-17 17:48] LABS: BASO % 0.8 % (0.0-1.0); EOS # 0.1 10^3/uL (0.0-0.5); EOS % 1.1 % (0.0-3.0); HEMATOCRIT 38.7 % (36.0-47.0); HEMOGLOBIN 12.5 g/dl (12.0-15.5); LYMPH # 1.2 10^3/uL (1.5-5.0); MEAN CORPUSCULAR HEMOGLOBIN 30.9 pg (27.0-33.0); MEAN CORPUSCULAR HGB CONC 32.3 g/dl (32.0-36.5); MEAN CORPUSCULAR VOLUME 95.6 fl (80.0-96.0); MONO # 0.3 10^3/uL (0.0-0.8); MONO % 5.1 % (2.0-8.0); NEUTROPHILS # 3.7 10^3/uL (1.5-8.5); NEUTROPHILS % 69.8 % (36.0-66.0); PLATELET COUNT, AUTOMATED 200 10^3/uL (150-450); RED BLOOD COUNT 4.05 10^6/uL (4.00-5.40); WHITE BLOOD COUNT 5.3 10^3/uL (4.0-10.0)
== END ==
LOC: M SFHCCLAY 11:54
PROVIDERS: ATTEND Internal Medicine Hematology
DX: D50.9 Iron deficiency anemia, unspecified (principal)

== ENCOUNTER 2024-02-02 15:22 | Outpatient (CLI) | payer OTHER ==
[~2024-02-02 15:22] MED LIST changes: +ALBUTEROL SULFATE 2.5MG/0.5ML INH NEB SOLN INH PRN; +EPINEPHrine INJ 1 MG/ML 1ML AMP IM PRN; +diphenhydrAMINE 50MG/ML VIAL IV PRN; +methylPREDNISolone 125MG 2ML VIAL IV PRN
[2024-02-02 15:45] VITALS: BP 114/55; O2SAT 100
[2024-02-02] MEDS: FERRIC CARBOXYMALTOSE INJ 750 MG in NS 250 ML (>50kg) IV ONE (15:58)
[2024-02-02] MEDS: NS 250 ML IV ONE (15:58)
[2024-02-02 17:22] VITALS: BP 106/58; O2SAT 100
== END 2024-02-02 17:22 ==
LOC: M INFU 15:22
PROVIDERS: ATTEND Internal Medicine Hematology
DX: D50.9 Iron deficiency anemia, unspecified (principal); Z88.8 Allergy status to other drugs, medicaments and biological substances; Z91.09 Other allergy status, other than to drugs and biological substances
CPT/HCPCS: 96365; J1439

== ENCOUNTER → 2024-04-12 | Outpatient (REF) | payer OTHER ==
[~2024-04-12] MED LIST changes: -ALBUTEROL SULFATE 2.5MG/0.5ML INH NEB SOLN INH PRN; -EPINEPHrine INJ 1 MG/ML 1ML AMP IM PRN; -diphenhydrAMINE 50MG/ML VIAL IV PRN; -methylPREDNISolone 125MG 2ML VIAL IV PRN
[2024-04-12 18:33] LABS: BASO % 0.3 % (0.0-1.0); HEMATOCRIT 38.3 % (36.0-47.0); HEMOGLOBIN 12.4 g/dl (12.0-15.5); LYMPH # 0.8 10^3/uL (1.5-5.0); LYMPH % 8.6 % (24.0-44.0); MEAN CORPUSCULAR HEMOGLOBIN 30.7 pg (27.0-33.0); MEAN CORPUSCULAR HGB CONC 32.4 g/dl (32.0-36.5); MEAN CORPUSCULAR VOLUME 94.8 fl (80.0-96.0); MONO # 0.2 10^3/uL (0.0-0.8); MONO % 2.3 % (2.0-8.0); NEUTROPHILS # 8.5 10^3/uL (1.5-8.5); NEUTROPHILS % 88.6 % (36.0-66.0); PLATELET COUNT, AUTOMATED 290 10^3/uL (150-450); RED BLOOD COUNT 4.04 10^6/uL (4.00-5.40); WHITE BLOOD COUNT 9.6 10^3/uL (4.0-10.0)
[2024-04-12 18:41] LABS: ERYTHROCYTE SEDIMENTATION RATE 8 mm/hr (0-20)
[2024-04-12 19:06] LABS: C REACTIVE PROTEIN QUANTITATIV < 0.40 MG/DL (<1.0)
[2024-04-12 19:07] LABS: ALBUMIN 4.1 G/DL (3.2-5.2); ALKALINE PHOSPHATASE 85 U/L (46-116); ALT/SGPT 14 U/L (7.0-40); AST/SGOT 10 U/L (<34); BILIRUBIN,TOTAL 0.3 MG/DL (0.3-1.2); BLOOD UREA NITROGEN 10 MG/DL (9-23); CALCIUM LEVEL 9.6 MG/DL (8.5-10.1); CARBON DIOXIDE LEVEL 28 MMOL/L (20-31); CHLORIDE LEVEL 104 MMOL/L (98-107); CREATININE FOR GFR 0.62 MG/DL (0.55-1.30); GLOMERULAR FILTRATION RATE > 60.0 (>60); GLUCOSE, FASTING 93 MG/DL (60-100); POTASSIUM SERUM 4.3 MMOL/L (3.5-5.1); RHEUMATOID FACTOR QUANT 6.4 IU/ML (<14); SODIUM LEVEL 137 MMOL/L (136-145); TOTAL IRON BINDING CAPACITY 300 UG/DL (250-425); TOTAL PROTEIN 7.3 G/DL (5.7-8.2)
[2024-04-12 19:08] LABS: FERRITIN 103.3 NG/ML (7.3-270.7); IRON (FE) 58 UG/DL (50-170); PERCENT SATURATION 19.3 % (13.2-45.0)
[2024-04-12 19:09] LABS: VITAMIN B12 LEVEL 432 PG/ML (211-911)
[2024-04-14 17:48] LABS: ANA SCREEN, IFA POSITIVE (NEGATIVE)
[2024-04-15 02:30] LABS: CYCLIC CITRULLINATED PEPTIDE < 16 UNITS (<20)
== END ==
LOC: M SFHCCLAY 14:58
PROVIDERS: ATTEND Physician Assistant
DX: M25.50 Pain in unspecified joint (principal); D50.9 Iron deficiency anemia, unspecified

== ENCOUNTER 2024-04-21 19:41 | Emergency (ER) | payer OTHER ==
[~2024-04-21] VITALS: Ht 162.6 cm; Wt 58.7 kg
[2024-04-21 19:44] VITALS: TEMP 97.3
[2024-04-21 21:19] LABS: BASO % 0.1 % (0.0-1.0); HEMATOCRIT 34.2 % (36.0-47.0); HEMOGLOBIN 11.1 g/dl (12.0-15.5); LYMPH # 0.5 10^3/uL (1.5-5.0); LYMPH % 4.7 % (24.0-44.0); MEAN CORPUSCULAR HGB CONC 32.5 g/dl (32.0-36.5); MEAN CORPUSCULAR VOLUME 95.5 fl (80.0-96.0); MONO # 0.1 10^3/uL (0.0-0.8); NEUTROPHILS # 9.3 10^3/uL (1.5-8.5); NEUTROPHILS % 93.9 % (36.0-66.0); PLATELET COUNT, AUTOMATED 305 10^3/uL (150-450); RED BLOOD COUNT 3.58 10^6/uL (4.00-5.40); WHITE BLOOD COUNT 9.9 10^3/uL (4.0-10.0)
[2024-04-21 21:22] LABS: ERYTHROCYTE SEDIMENTATION RATE 3 mm/hr (0-20)
[2024-04-21] MEDS ORDERED: PROHANCE 279.3MG/ML 15ML VIAL As Ordered ONE (21:37)
[2024-04-22] MEDS: KETOROLAC 30 MG/ML 1ML VIAL IV ONE (00:10)
[2024-04-22] MEDS: NS 1,000 ML IV ONE (00:11)
[2024-04-22] MEDS: diphenhydrAMINE 50MG/ML VIAL IV ONE (00:11)
[2024-04-22] MEDS: METOCLOPRAMIDE INJ 10MG/2ML VIAL IV ONE (00:11)
[2024-04-22 02:51] VITALS: BP 106/59; O2SAT 98
== END 2024-04-22 02:56 | disposition home or self-care (01) ==
LOC: M ED 19:41
DX: R53.1 Weakness (principal); R20.2 Paresthesia of skin; F90.9 Attention-deficit hyperactivity disorder, unspecified type; F10.10 Alcohol abuse, uncomplicated; Z88.5 Allergy status to narcotic agent; Z91.09 Other allergy status, other than to drugs and biological substances; Z79.1 Long term (current) use of non-steroidal anti-inflammatories (NSAID); Z79.810 Long term (current) use of selective estrogen receptor modulators (SERMs); Z79.899 Other long term (current) drug therapy
CPT/HCPCS: 70553; 72156; 72158; 80047; 85025; 85652; 86140; 96361; 96374; 96375; 99284; A9576; J1200; J1885; J2765

== ENCOUNTER 2024-04-27 15:48 | Emergency (ER) | payer OTHER ==
[~2024-04-27] VITALS: Ht 162.6 cm; Wt 57.3 kg
[2024-04-27] MEDS ORDERED: ISOVUE-370 76% 100ML VIAL As Ordered ONE (16:29)
[2024-04-27 16:57] LABS: BASO # 0.1 10^3/uL (0.0-0.2); BASO % 0.6 % (0.0-1.0); EOS # 0.1 10^3/uL (0.0-0.5); HEMATOCRIT 40.9 % (36.0-47.0); HEMOGLOBIN 13.4 g/dl (12.0-15.5); LYMPH # 2.1 10^3/uL (1.5-5.0); LYMPH % 26.3 % (24.0-44.0); MEAN CORPUSCULAR HEMOGLOBIN 30.5 pg (27.0-33.0); MEAN CORPUSCULAR HGB CONC 32.8 g/dl (32.0-36.5); MEAN CORPUSCULAR VOLUME 93.2 fl (80.0-96.0); MONO # 0.4 10^3/uL (0.0-0.8); MONO % 4.7 % (2.0-8.0); NEUTROPHILS # 5.4 10^3/uL (1.5-8.5); PLATELET COUNT, AUTOMATED 309 10^3/uL (150-450); RED BLOOD COUNT 4.39 10^6/uL (4.00-5.40)
[2024-04-27 17:18] VITALS: BP 142/68; O2SAT 100
[2024-04-27 17:23] LABS: INR 0.88; PARTIAL THROMBOPLASTIN TIME 25.1 SECONDS (24.8-34.2); PROTHROMBIN TIME 11.7 SECONDS (12.5-14.5)
[2024-04-27] MEDS: MORPHINE 4 MG/ML 1ML VIAL IV ONE (18:15)
[2024-04-27 18:26] LABS: THYROID STIMULATING HORMONE 4.466 uIU/ML (0.55-4.78)
[2024-04-27 18:32] LABS: C REACTIVE PROTEIN QUANTITATIV < 0.40 MG/DL (<1.0)
[2024-04-27 18:34] LABS: ALBUMIN 4.2 G/DL (3.2-5.2); ALKALINE PHOSPHATASE 76 U/L (46-116); ALT/SGPT 16 U/L (7.0-40); AST/SGOT 23 U/L (<34); BILIRUBIN,DIRECT 0.2 MG/DL (<0.4); BILIRUBIN,TOTAL 0.7 MG/DL (0.3-1.2); MAGNESIUM LEVEL 2.1 MG/DL (1.8-2.4)
[2024-04-27 18:38] LABS: ERYTHROCYTE SEDIMENTATION RATE 8 mm/hr (0-20)
[2024-04-27 18:50] LABS: HCG, SERUM QUALITATIVE NEGATIVE (NEGATIVE)
[2024-04-27 18:54] LABS: CK-MB VALUE MASS < 1.0 NG/ML (<3.6); CPK CREATINE PHOSPHOKINASE 56 U/L (34-145); MB/CK RELATIVE INDEX 1.78 (< OR =4)
[2024-04-27 19:30] VITALS: BP 113/65; TEMP 97.8; O2SAT 100
== END 2024-04-27 19:44 | disposition short-term general hospital (02) ==
LOC: M ED 15:48
DX: A52.17 General paresis (principal); R94.31 Abnormal electrocardiogram [ECG] [EKG]; Z88.8 Allergy status to other drugs, medicaments and biological substances; Z91.09 Other allergy status, other than to drugs and biological substances; Z79.1 Long term (current) use of non-steroidal anti-inflammatories (NSAID); Z79.810 Long term (current) use of selective estrogen receptor modulators (SERMs); Z79.899 Other long term (current) drug therapy
CPT/HCPCS: 70450; 70496; 70498; 71045; 80047; 80076; 82550; 82553; 83735; 84443; 84484; 84703; 85025; 85610; 85652; 85730; 86140; 86850; 86900; 86901; 93005; 93041; 94760; 96374; 99285; Q9967

== ENCOUNTER → 2024-05-02 | Outpatient (REF) | payer OTHER ==
[2024-05-02 19:19] LABS: HEMOGLOBIN A1c 5.1 % (4.0-6.0)
[2024-05-02 19:35] LABS: URIC ACID 3.6 MG/DL (3.1-7.8)
[2024-05-02 19:38] LABS: CPK CREATINE PHOSPHOKINASE 68 U/L (34-145)
[2024-05-02 20:37] LABS: COMPLEMENT C3 106.3 MG/DL (90.0-170.0); COMPLEMENT C4 31.9 MG/DL (12-36)
[2024-05-04 09:18] LABS: T P ELECTROPHORESIS SO 7.1 g/dL (6.1-8.1)
[2024-05-04 12:30] LABS: DRVV SCREEN 30.8 SECONDS
[2024-05-04 12:33] LABS: PTT LUPUS TYPE ANTICOAG SCREEN 0.77 (0-1.20)
[2024-05-05 12:38] LABS: CARDIOLIPIN IGA ANTIBODY < 2.0 APL-U/mL (<20.0); CARDIOLIPIN IGG ANTIBODY < 2.0 GPL-U/mL (<20.0); CARDIOLIPIN IGM ANTIBODY < 2.0 MPL-U/mL (<20.0)
[2024-05-05 17:02] LABS: ANA SCREEN, IFA POSITIVE (NEGATIVE)
[2024-05-06 00:47] LABS: IgG P18 AB NON-REACTIVE; IgG P23 AB NON-REACTIVE; IgG P28 AB NON-REACTIVE; IgG P30 AB NON-REACTIVE; IgG P39 AB NON-REACTIVE; IgG P41 AB NON-REACTIVE; IgG P45 AB NON-REACTIVE; IgG P58 AB REACTIVE; IgG P66 AB NON-REACTIVE; IgG P93 AB NON-REACTIVE; IgM P23 AB NON-REACTIVE; IgM P39 AB NON-REACTIVE; IgM P41 AB NON-REACTIVE; LYME IgG WB INTERPRETATION NEGATIVE (NEGATIVE); LYME IgM WB INTERPRETATION NEGATIVE (NEGATIVE)
[2024-05-06 01:12] LABS: ANTI SMITH(Sm) AB <1.0 NEG AI (<1.0 NEG); ANTI-U1 RNP AB <1.0 NEG AI (<1.0 NEG); SSA SJOGRENS A <1.0 NEG AI (<1.0 NEG); SSB SJOGRENS B <1.0 NEG AI (<1.0 NEG)
[2024-05-08 08:27] LABS: ALBUMIN SPEP 4.5 g/dL (3.8-4.8); ALPHA-1-GLOBULINS SO 0.3 g/dL (0.2-0.3); ALPHA-2-GLOBULINS SO 0.5 g/dL (0.5-0.9); BETA 2 GLOBULIN 0.3 g/dL (0.2-0.5); BETA-GLOBULIN SO 0.4 g/dL (0.4-0.6); GAMMA GLOBULINS SO 1.1 g/dL (0.8-1.7)
[2024-05-08 13:43] LABS: LYME TOTAL ANTIBODY CIA <= 0.90 Index (<=0.90)
[2024-05-08 19:43] LABS: ANCA SCREEN Negative (Negative)
== END ==
LOC: M LABDRAWC 17:28
PROVIDERS: ATTEND Psychiatry & Neurology Neurology
DX: R20.2 Paresthesia of skin (principal); R52 Pain, unspecified

== ENCOUNTER → 2024-05-05 | Outpatient (REF) | payer OTHER | LOC: M LABDRAWC 16:41 | PROVIDERS: ATTEND Psychiatry & Neurology Neurology | DX: R20.2 Paresthesia of skin (principal); R53.1 Weakness; M25.50 Pain in unspecified joint ==

== ENCOUNTER 2024-09-13 15:13 | Emergency (ER) | payer OTHER ==
[~2024-09-13] VITALS: Ht 162.6 cm; Wt 55.7 kg
[2024-09-13] MEDS: KETOROLAC 30 MG/ML 1ML VIAL IV ONE (17:00)
[2024-09-13] MEDS: LIDOCAINE VISCOUS 2% SOLN 15ML UDC SSP ONE (17:00)
[2024-09-13 17:40] LABS: BASO % 0.2 % (0.0-1.0); EOS % 0.3 % (0.0-3.0); HEMATOCRIT 39.5 % (36.0-47.0); HEMOGLOBIN 13.2 g/dl (12.0-15.5); LYMPH # 1.7 10^3/uL (1.5-5.0); LYMPH % 28.2 % (24.0-44.0); MEAN CORPUSCULAR HEMOGLOBIN 28.7 pg (27.0-33.0); MEAN CORPUSCULAR HGB CONC 33.4 g/dl (32.0-36.5); MEAN CORPUSCULAR VOLUME 85.9 fl (80.0-96.0); MONO # 0.4 10^3/uL (0.0-0.8); MONO % 7.2 % (2.0-8.0); NEUTROPHILS # 3.8 10^3/uL (1.5-8.5); NEUTROPHILS % 63.8 % (36.0-66.0); PLATELET COUNT, AUTOMATED 262 10^3/uL (150-450)
[2024-09-13] MEDS: NS (Normal Saline) 0.9% 1,000 ML IV ONE (18:10)
[2024-09-13 18:13] LABS: BLOOD UREA NITROGEN 10 MG/DL (9-23); CALCIUM LEVEL 8.9 MG/DL (8.5-10.1); CARBON DIOXIDE LEVEL 26 MMOL/L (20-31); CHLORIDE LEVEL 104 MMOL/L (98-107); CREATININE FOR GFR 0.64 MG/DL (0.55-1.30); GLOMERULAR FILTRATION RATE > 60.0 (>58); GLUCOSE, FASTING 81 MG/DL (60-100); POTASSIUM SERUM 3.9 MMOL/L (3.5-5.1); SODIUM LEVEL 139 MMOL/L (136-145)
[2024-09-13 18:14] LABS: MONO SCRN NEGATIVE (NEGATIVE)
[2024-09-13] MEDS ORDERED: LIDO15SO8 PO (19:38)
[2024-09-13 19:45] VITALS: BP 117/70; TEMP 97.8; O2SAT 100
== END 2024-09-13 19:50 | disposition home or self-care (01) ==
LOC: M ED 15:13
DX: K13.79 Other lesions of oral mucosa (principal); K58.9 Irritable bowel syndrome, unspecified; F41.9 Anxiety disorder, unspecified; Z88.5 Allergy status to narcotic agent; Z91.09 Other allergy status, other than to drugs and biological substances; Z79.1 Long term (current) use of non-steroidal anti-inflammatories (NSAID); Z79.899 Other long term (current) drug therapy; Z79.810 Long term (current) use of selective estrogen receptor modulators (SERMs)
CPT/HCPCS: 80048; 85025; 86308; 96374; 99284; J1885

== ENCOUNTER → 2024-11-29 | Outpatient (REF) | payer OTHER ==
[~2024-11-29] MED LIST changes: +LIDO15SO8 PO
[2024-11-29 17:23] LABS: BASO % 0.7 % (0.0-1.0); EOS # 0.1 10^3/uL (0.0-0.5); EOS % 0.8 % (0.0-3.0); HEMATOCRIT 35.3 % (36.0-47.0); LYMPH # 1.1 10^3/uL (1.5-5.0); LYMPH % 17.9 % (24.0-44.0); MEAN CORPUSCULAR HEMOGLOBIN 29.3 pg (27.0-33.0); MEAN CORPUSCULAR HGB CONC 31.2 g/dl (32.0-36.5); MEAN CORPUSCULAR VOLUME 93.9 fl (80.0-96.0); MONO # 0.3 10^3/uL (0.0-0.8); MONO % 5.5 % (2.0-8.0); NEUTROPHILS # 4.6 10^3/uL (1.5-8.5); NEUTROPHILS % 74.9 % (36.0-66.0); PLATELET COUNT, AUTOMATED 291 10^3/uL (150-450); RED BLOOD COUNT 3.76 10^6/uL (4.00-5.40); WHITE BLOOD COUNT 6.2 10^3/uL (4.0-10.0)
[2024-11-29 17:50] LABS: ALBUMIN 3.8 G/DL (3.2-5.2); ALKALINE PHOSPHATASE 54 U/L (35-104); ALT/SGPT < 9 U/L (7.0-40); AST/SGOT < 8 U/L (<34); BILIRUBIN,TOTAL 0.3 MG/DL (0.3-1.2); BLOOD UREA NITROGEN 15 MG/DL (9-23); CALCIUM LEVEL 8.8 MG/DL (8.5-10.1); CARBON DIOXIDE LEVEL 27 MMOL/L (20-31); CHLORIDE LEVEL 107 MMOL/L (98-107); CREATININE FOR GFR 0.62 MG/DL (0.55-1.30); GLOMERULAR FILTRATION RATE > 90.0 (>58); GLUCOSE, FASTING 78 MG/DL (60-100); POTASSIUM SERUM 4.5 MMOL/L (3.5-5.1); SODIUM LEVEL 142 MMOL/L (136-145); TOTAL PROTEIN 6.5 G/DL (5.7-8.2)
[2024-11-29 17:57] LABS: THYROID STIMULATING HORMONE 1.235 uIU/ML (0.55-4.78)
[2024-11-30 09:34] LABS: IRON (FE) 70 UG/DL (50-170); PERCENT SATURATION 22.2 % (13.2-45.0); TOTAL IRON BINDING CAPACITY 316 UG/DL (250-425)
[2024-11-30 09:37] LABS: FERRITIN 10.7 NG/ML (7.3-270.7)
== END ==
LOC: M SFHCCLAY 09:30
PROVIDERS: ATTEND Physician Assistant
DX: R42 Dizziness and giddiness (principal); M25.50 Pain in unspecified joint

== ENCOUNTER 2025-01-17 10:20 | Outpatient (CLI) | payer OTHER ==
[~2025-01-17] VITALS: Ht 162.6 cm; Wt 51.2 kg
[~2025-01-17 10:20] MED LIST changes: +ALBUTEROL SULFATE 2.5 MG/0.5 ML INH CONCENTRATE NEB SOLN INH PRN; +EPINEPHrine INJ 1 MG/ML 1ML AMP IM PRN; +diphenhydrAMINE 50 MG/ML VIAL IV PRN
[2025-01-17 10:30] VITALS: BP 108/68; O2SAT 100
[2025-01-17] MEDS: FERRIC CARBOXYMALTOSE 750 MG (VIAL MATE) IN 100ML NS IV ONE (10:41)
[2025-01-17 11:55] VITALS: O2SAT 99
== END 2025-01-17 11:50 ==
LOC: M INFU 10:20
PROVIDERS: ATTEND Physician Assistant
DX: D50.0 Iron deficiency anemia secondary to blood loss (chronic) (principal); Z88.5 Allergy status to narcotic agent; Z91.09 Other allergy status, other than to drugs and biological substances
CPT/HCPCS: 96365; J1439

== ENCOUNTER 2025-01-24 15:30 | Outpatient (CLI) | payer OTHER ==
[~2025-01-24] VITALS: Ht 160 cm; Wt 49.5 kg
[2025-01-24 15:40] VITALS: BP 114/71; O2SAT 100
[2025-01-24] MEDS: FERRIC CARBOXYMALTOSE 750 MG (VIAL MATE) IN 100ML NS IV ONE (15:49)
[2025-01-24 17:05] VITALS: BP 118/64; O2SAT 100
== END 2025-01-24 17:05 ==
LOC: M INFU 15:30
PROVIDERS: ATTEND Physician Assistant
DX: D50.0 Iron deficiency anemia secondary to blood loss (chronic) (principal); Z88.5 Allergy status to narcotic agent; Z91.09 Other allergy status, other than to drugs and biological substances
CPT/HCPCS: 96365; J1439

== ENCOUNTER → 2025-02-13 | Outpatient (REF) | payer OTHER ==
[~2025-02-13] MED LIST changes: -ALBUTEROL SULFATE 2.5 MG/0.5 ML INH CONCENTRATE NEB SOLN INH PRN; -EPINEPHrine INJ 1 MG/ML 1ML AMP IM PRN; -diphenhydrAMINE 50 MG/ML VIAL IV PRN
[2025-02-13 17:14] LABS: APPEARANCE, URINE CLEAR (CLEAR); BACTERIA, URINE AUTO NEGATIVE (NEGATIVE); BILIRUBIN, URINE AUTO NEGATIVE (NEGATIVE); BLOOD, URINE BLOOD NEGATIVE (NEGATIVE); GLUCOSE, URINE (UA) AUTO NEGATIVE (NEGATIVE); KETONE, URINE AUTO NEGATIVE (NEGATIVE); LEUKOCYTE ESTERASE, URINE AUTO NEGATIVE (NEGATIVE); MUCUS, URINE SMALL (NEGATIVE); NITRITE, URINE AUTO NEGATIVE (NEGATIVE); PROTEIN, URINE AUTO NEGATIVE (NEGATIVE); RBC, URINE AUTO 0 /HPF (0-3); SPECIFIC GRAVITY URINE AUTO 1.017 (1.002-1.035); SQUAMOUS EPITHELIAL CELL UR AU 4 /HPF (0-6); UROBILINOGEN, URINE AUTO 0.2 mg/dL (0.0-2.0); WBC, URINE AUTO 1 /HPF (0-3)
== END ==
LOC: M SMT 16:48
PROVIDERS: ATTEND Nurse Practitioner Family
DX: N39.0 Urinary tract infection, site not specified (principal)

== ENCOUNTER → 2025-04-24 | Outpatient (CLI) | payer OTHER ==
[~2025-04-24] MED LIST changes: -IBUP-1022 PO; +IBUP600T42 PO
== END ==
LOC: M WHC 16:23
PROVIDERS: ATTEND Nurse Practitioner Family
DX: Z12.31 Encounter for screening mammogram for malignant neoplasm of breast (principal)

== ENCOUNTER → 2025-05-09 | Outpatient (CLI) | payer OTHER | LOC: M WHC 11:33 | PROVIDERS: ATTEND Nurse Practitioner Family | DX: R92.8 Other abnormal and inconclusive findings on diagnostic imaging of breast (principal) ==

== ENCOUNTER → 2025-05-09 | Outpatient (CLI) | payer OTHER | LOC: M WHC 10:22 | PROVIDERS: ATTEND Nurse Practitioner Family | DX: R92.8 Other abnormal and inconclusive findings on diagnostic imaging of breast (principal) ==

== ENCOUNTER → 2025-07-03 | Outpatient (REF) | payer OTHER ==
[~2025-07-03] MED LIST changes: +ADAL40PE
[2025-07-03 18:26] LABS: IRON (FE) 65 UG/DL (50-170)
[2025-07-03 18:27] LABS: ALT/SGPT 12 U/L (7.0-40); AST/SGOT 16 U/L (<34); CALCIUM LEVEL 8.7 MG/DL (8.5-10.1); CARBON DIOXIDE LEVEL 29 MMOL/L (20-31); CHLORIDE LEVEL 103 MMOL/L (98-107); CREATININE FOR GFR 0.79 MG/DL (0.55-1.30); GLOMERULAR FILTRATION RATE > 90.0 (>58); PERCENT SATURATION 25.5 % (13.2-45.0); POTASSIUM SERUM 4.4 MMOL/L (3.5-5.1); SODIUM LEVEL 139 MMOL/L (136-145)
[2025-07-03 18:29] LABS: BASO # 0.0 10^3/uL (0.0-0.2); BASO % 0.3 % (0.0-1.0); EOS # 0.1 10^3/uL (0.0-0.5); EOS % 1.2 % (0.0-3.0); LYMPH # 1.3 10^3/uL (1.5-5.0); LYMPH % 17.7 % (24.0-44.0); MONO # 0.4 10^3/uL (0.0-0.8); MONO % 4.8 % (2.0-8.0); NEUTROPHILS # 5.5 10^3/uL (1.5-8.5); NEUTROPHILS % 75.7 % (36.0-66.0); PLATELET COUNT, AUTOMATED 262 10^3/uL (150-450)
== END ==
LOC: M LABDRAWC 17:29 → M LAB REF 17:29
PROVIDERS: ATTEND Specialist
DX: D50.9 Iron deficiency anemia, unspecified (principal)